=== PATIENT | female | born 1995 | race Hispanic/Latino ===

== ENCOUNTER 2018-05-28 20:29 | Emergency (ER) | payer SELFPAY ==
[2018-05-28 21:46] LABS: Absolute Lymphocytes (CBC) 2.3 K/uL (0.7-4.9); Absolute Monocytes 0.6 K/uL (0.1-1.3); Eosinophils % 3.6 % (0-4.4); Hematocrit 38.3 % (36.0-45.0); Lymphocytes % 45.2 % (15.3-44.8); MPV 7.8 fL (7.6-11.3); Monocytes % 11.9 % (3.3-12.3); RBC Red Blood Cell Count 4.01 M/uL (3.86-4.86)
[2018-05-28 21:58] LABS: Potassium 3.6 mmol/L (3.5-5.1)
[2018-05-28 22:20] LABS: Blood Morphology Comment NOT SEEN (NOT SEEN); Platelet Estimate ADEQ
--- NOTE | 2018-05-28 22:25 | RAD REPORT ---
EXAM DESCRIPTION: RAD - Chest Single View - 05/28/2018 9:44 pm CLINICAL HISTORY: CHEST PAIN Chest pain. COMPARISON: No comparisons FINDINGS: Portable technique limits examination quality. The lungs are grossly clear. The heart is normal in size. No displaced fractures. IMPRESSION: No acute intrathoracic process suspected.
--- NOTE | 2018-05-28 23:34 | ER ---
Nurse's Notes [facility] Name: Sis Walker Age: 22 yrs Sex: Female : 1995 Arrival Date: 05/28/2018 Time: 20:30 Bed 20 Private MD: Diagnosis: Chest pain, unspecified Presentation: 05/28 20:45 Presenting complaint: Patient states: Chest pain on and off for about 6 months, tonight lp1 began to have numbness in feet; Seen at clinic and given referral to direct support staff, keke on Tuesday; Complaint of chest pain to right side of chest, dizziness, shortness of breath. Transition of care: patient was not received from another setting of care. Onset of symptoms was May 28, 2018. Risk Assessment: Do you want to hurt yourself or someone else? Patient reports no desire to harm self or others. Initial Sepsis Screen: Does the patient meet any 2 criteria? No. Patient's initial sepsis screen is negative. Does the patient have a suspected source of infection? No. Patient's initial sepsis screen is negative. Care prior to arrival: None. 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 - Social history:: Smoking status: Patient/guardian denies using tobacco. - Ebola Screening: : No symptoms or risks identified at this time. - Family history:: not pertinent. - Hospitalizations: : No recent hospitalization is reported. Screenin:49 Abuse screen: Denies threats or abuse. Denies injuries from another. Nutritional lp1 screening: No deficits noted. Tuberculosis screening: No symptoms or risk factors identified. Fall Risk None identified. Assessment: 20:49 General: Appears in no apparent distress. Behavior is calm, cooperative. Pain: ed1 Complains of pain in right side of chest Pain does not radiate. Pain currently is 8 out of 10 on a pain scale. Quality of pain is described as sharp, Pain began 1 hour ago. Is continuous. Neuro: Level of Consciousness is awake, alert, obeys commands, Oriented to person, place, time, situation, Reports dizziness. Cardiovascular: Reports chest pain, lightheadedness, shortness of breath, Heart tones S1 S2 present Capillary refill < 3 seconds in bilateral fingers Patient's skin is warm and dry. Rhythm is regular. Respiratory: Reports shortness of breath at rest Airway is patent Respiratory effort is even, unlabored, Respiratory pattern is regular, symmetrical, Breath sounds are clear bilaterally. GI: No signs and/or symptoms were reported involving the gastrointestinal system. : No signs and/or symptoms were reported regarding the genitourinary system. EENT: No signs and/or symptoms were reported regarding the EENT system. Derm: Skin is pink, warm \T\ dry. Musculoskeletal: Circulation, motion, and sensation intact. Range of motion: intact in all extremities. 21:59 Reassessment: Patient appears in no apparent distress at this time. No changes from ed1 previously documented assessment. Patient and/or family updated on plan of care and expected duration. Pain level reassessed. Patient is alert, oriented x 3, equal unlabored respirations, skin warm/dry/pink. Patient states symptoms have not improved. 23:07 Reassessment: Patient appears in no apparent distress at this time. Patient and/or ed1 family updated on plan of care and expected duration. Pain level reassessed. Patient is alert, oriented x 3, equal unlabored respirations, skin warm/dry/pink. Patient states feeling better. Patient states symptoms have improved. Vital Signs: 20:47 BP 141 / 87; Pulse 74; Resp 16; Temp 98.8(O); Pulse Ox 99% on R/A; Weight 56.7 kg; lp1 Height 4 ft. 11 in. (149.86 cm); Pain 8/10; 21:59 BP 111 / 69; Pulse 74; Resp 16; Pulse Ox 98% on R/A; Pain 8/10; ed1 23:10 BP 100 / 65; Pulse 69; Resp 15; Pulse Ox 100% on R/A; Pain 4/10; ed1 20:47 Body Mass Index 25.25 (56.70 kg, 149.86 cm) lp1 ED Course: 20:30 Patient arrived in ED. do 20:47 Triage completed. lp1 20:48 Arm band placed on. lp1 20:49 Patient has correct armband on for positive identification. Placed in gown. Bed in low ed1 position. Call light in reach. Side rails up X 1. Adult w/ patient. environmental monitoring technician on. Pulse ox on. NIBP on. Warm blanket given. 20:49 Patient maintains SpO2 saturation greater than 95% on room air. ed1 20:51 Josef Alves MD is Attending Physician. rn 21:40 Inserted saline lock: 20 gauge in right antecubital area, using aseptic technique. mt Blood collected. 21:44 XRAY Chest (1 view) In Process Unspecified. EDMS 21:57 Petra Wagner, RN is Primary Nurse. ed1 05/29 00:04 No provider procedures requiring assistance completed. IV discontinued, intact, ed1 bleeding controlled, No redness/swelling at site. Pressure dressing applied. Administered Medications: No medications were administered Outcome: 05/28 23:34 Discharge ordered by . rn 05/29 00:04 Discharged to home ambulatory, with significant other. ed1 Condition: good Discharge instructions given to patient, Instructed on discharge instructions, follow up and referral plans. Demonstrated understanding of instructions, follow-up care. 00:05 Patient left the ED. ed1 Signatures: Dispatcher [employer] EDMS Josef Alves MD MD rn Riggs, Erika, RN RN ed1 Padmaja Soto RN RN lp1 Emily Chau [place] mt Corrections: (The following items were deleted from the chart) 05/28 23:08 23:07 Reassessment: Patient appears in no apparent distress at this time. No changes ed1 from previously documented assessment. Patient and/or family updated on plan of care and expected duration. Pain level reassessed. Patient is alert, oriented x 3, equal unlabored respirations, skin warm/dry/pink. ed1
--- NOTE | 2018-05-28 23:34 | EDPHYS ---
Physician Documentation [facility] Name: Sis Walker Age: 22 yrs Sex: Female : 1995 Arrival Date: 05/28/2018 Time: 20:30 Bed 20 Private MD: ED Physician Josef Alves HPI: 05/28 22:55 This 22 yrs old Female presents to ER via Ambulatory with complaints of Chest rn Pain. 22:55 The patient or guardian reports chest pain that is located primarily in the anterior rn chest wall, left. The pain does not radiate. Associated signs and symptoms: Pertinent negatives: abdominal pain, cough, diaphoresis, dizziness, lower extremity pain, lower extremity swelling, lightheadedness, near syncope, palpitations, shortness of breath, syncope, vomiting. The chest pain is described as sharp. Duration: The patient or guardian reports multiple episodes, that are intermittent. Modifying factors: The symptoms are alleviated by nothing. the symptoms are aggravated by laying down. Severity of pain: At its worst the pain was mild in the emergency department the pain has improved. The patient has experienced similar episodes in the past. Reports began 6 months ago with intermittent chest pain, was right sided, now left sided, no sob, no hx or risk factors for DVT, no trauma, no fever/cough/weight loss/hemoptysis. Seen at clinic recently, has appt with cardiology this upcoming week. No famhx of cardiac problems at her age. . 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 - Social history:: Smoking status: Patient/guardian denies using tobacco. - Ebola Screening: : No symptoms or risks identified at this time. - Family history:: not pertinent. - Hospitalizations: : No recent hospitalization is reported. ROS: 22:55 Constitutional: Negative for fever, chills, and weight loss, Eyes: Negative for injury, rn pain, redness, and discharge, Neck: Negative for injury, pain, and swelling, Cardiovascular: Negative for palpitations, and edema, Respiratory: Negative for shortness of breath, cough, wheezing Abdomen/GI: Negative for abdominal pain, nausea, vomiting, diarrhea, and constipation, Back: Negative for injury and pain, MS/Extremity: Negative for injury and deformity, Skin: Negative for injury, rash, and discoloration, Neuro: Negative for headache, weakness, numbness, and seizure. Exam: 22:55 Constitutional: This is a well developed, well nourished patient who is awake, alert, rn and in no acute distress. Head/Face: Normocephalic, atraumatic. Eyes: Pupils equal round and reactive to light, extra-ocular motions intact. Lids and lashes normal. Conjunctiva and sclera are non-icteric and not injected. Cornea within normal limits. Periorbital areas with no swelling, redness, or edema. Cardiovascular: Regular rate and rhythm. No pulse deficits. Respiratory: Lungs have equal breath sounds bilaterally, clear to auscultation. No increased work of breathing, no retractions or nasal flaring. Abdomen/GI: soft, non-tender Skin: Warm, dry MS/ Extremity: Pulses equal, no cyanosis. Neurovascular intact. Full, normal range of motion. Equal circumference. Neuro: Awake and alert, GCS 15, oriented to person, place, time, and situation. Cranial nerves II-XII grossly intact. Motor strength 5/5 in all extremities. Sensory grossly intact Vital Signs: 20:47 BP 141 / 87; Pulse 74; Resp 16; Temp 98.8(O); Pulse Ox 99% on R/A; Weight 56.7 kg; lp1 Height 4 ft. 11 in. (149.86 cm); Pain 8/10; 21:59 BP 111 / 69; Pulse 74; Resp 16; Pulse Ox 98% on R/A; Pain 8/10; ed1 23:10 BP 100 / 65; Pulse 69; Resp 15; Pulse Ox 100% on R/A; Pain 4/10; ed1 20:47 Body Mass Index 25.25 (56.70 kg, 149.86 cm) lp1 MDM: 20:51 Patient medically screened. rn 23:32 Differential diagnosis: abnormal EKG, acute pericarditis, anxiety, coronary artery rn disease chest wall pain, costochondritis, gastroesophageal reflux disease (GERD), pericarditis, pleurisy, pneumothorax, pulmonary embolus. Data reviewed: vital signs, nurses notes, lab test result(s), EKG, radiologic studies, plain films, and as a result, I will discharge patient. Counseling: I had a detailed discussion with the patient and/or guardian regarding: the historical points, exam findings, and any diagnostic results supporting the discharge/admit diagnosis, lab results, radiology results, the need for outpatient follow up, to return to the emergency department if symptoms worsen or persist or if there are any questions or concerns that arise at home. Special discussion: Based on the patient's history, exam, and Dx evaluation, there is no indication for emergent intervention or inpatient Tx. It is understood by the patient/guardian that if the Sx's persist or worsen they need to return immediately for re-evaluation. I discussed with the patient/guardian in detail that at this point there is no indication for admission to the hospital. It is understood, however, that if the symptoms persist or worsen the patient needs to return immediately for re-evaluation. Based on the history and exam findings, there is no indication for further emergent testing or inpatient evaluation. I discussed with the patient/guardian the need to see the sand operator for further evaluation of the symptoms. ED course: Pt with non-specific twave inversions inferior/lateral, no signs of acute ischemia or pericarditis, neg d-dimer, neg trop, will dc home with f/u with cardiology for holter and ECHO. . 05/28 21:31 Order name: CBC with Diff; Complete Time: 22: rn 05/28 21:31 Order name: Basic Metabolic Panel; Complete Time: 22: rn 05/28 21:31 Order name: D-Dimer; Complete Time: 22: rn 05/28 21:31 Order name: Urine Microscopic Only rn 05/28 21:47 Order name: Manual Differential; Complete Time: 22:26 EDMS 05/28 23:13 Order name: Urine Dipstick--Ancillary (enter results) 05/28 21:31 Order name: IV Start; Complete Time: 21:40 rn 05/28 21:31 Order name: EKG; Complete Time: 21:31 rn 05/28 21:31 Order name: EKG - Nurse/Tech; Complete Time: 21:32 rn 05/28 21:31 Order name: XRAY Chest (1 view); Complete Time: 22:26 rn 05/28 21:31 Order name: Urine Test (obtain specimen); Complete Time: 23:06 rn 05/28 21:31 Order name: Urine Dipstick-Ancillary (obtain specimen); Complete Time: 23:06 rn 05/28 23:13 Order name: Urine --Ancillary (enter results) 05/28 23:39 Order name: Urine Culture EDMS Administered Medications: No medications were administered Disposition: 05/28/18 23:34 Discharged to Home. Impression: Chest pain, unspecified. - Condition is Stable. - Discharge Instructions: Nonspecific Chest Pain, Pain Without a Known Cause. - Medication Reconciliation Form, Thank You Letter, Antibiotic Education, Prescription Opioid Use, Work release form form. - Follow up: Private Physician; When: As needed; Reason: Recheck today's complaints, Re-evaluation by your physician. - Problem is an ongoing problem. - Symptoms have improved. Signatures: Dispatcher [employer] EDMS Josef Alves MD MD rn Riggs, Erika RN RN ed1 Padmaja Soto RN RN lp1 Corrections: (The following items were deleted from the chart) 05/29 00:05 05/28 23:34 05/28/2018 23:34 Discharged to Home. Impression: Chest pain, unspecified. ed1 Condition is Stable. Forms are Medication Reconciliation Form, Thank You Letter, Antibiotic Education, Prescription Opioid Use. Follow up: Private Physician; When: As needed; Reason: Recheck today's complaints, Re-evaluation by your physician. Problem is an ongoing problem. Symptoms have improved. rn
[2018-05-28 23:37] LABS: Urine Bacteria 20-50 /HPF (<20)
[2018-05-28 23:38] LABS: Urine Culture Reflex Order REFLEXED; Urine RBC NONE SEEN /HPF (NONE SEEN)
[2018-05-29 05:20] LABS: Urine Blood 3+ (NEG); Urine Glucose NEGATIVE (NEG); Urine Protein TRACE (NEG)
--- NOTE | 2018-05-29 05:51 | EKG ---
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
== END 2018-05-29 00:05 | disposition home or self-care (01) ==
LOC: ER 20:29
DX: R07.9 Chest pain, unspecified (principal)
CPT/HCPCS: 36415; 71045; 80048; 81003; 81015; 81025; 85025; 85379; 87086; 87088; 93005; 99285

== ENCOUNTER 2020-01-26 02:35 | Emergency (ER) | payer BC, SELFPAY ==
--- OUTSIDE RECORDS SUMMARY | 2020-01-26 02:37 | XMS REPORT | Continuity of Care Document ---
:1995 Author Organization [facility] t Address [address] [place] [address] [address] [place] [address] Care Team Providers Name Role Phone Unavailable Unavailable Unavailable Problems This patient has no known problems. Allergies, Adverse Reactions, Alerts This patient has no known allergies or adverse reactions. Medications This patient has no known medications. Procedures This patient has no known procedures. Results This patient has no known results.
[2020-01-26] MEDS ORDERED: KETOROLAC 30 MG/ML INJ ONE (03:14)
--- NOTE | 2020-01-26 04:26 | ER ---
Nurse's Notes [facility] Name: Sis Walker Age: 24 yrs Sex: Female : 1995 Arrival Date: 01/26/2020 Time: 02:39 Bed 5 Private MD: Diagnosis: Strain of muscle and tendon of front wall of thorax Presentation: 01/25 02:44 Chief complaint: Patient states: right sided chest "cramping" woke patient up from 5 sleep. She tried omeprazole, with no relief. Pt rates pain at 4/10 no other complaints. Coronavirus screen: Client denies travel out of the [place] in the last 14 days. At this time, the client does not indicate any symptoms associated with coronavirus-19. Ebola Screen: Patient negative for fever greater than or equal to 101.5 degrees Fahrenheit, and additional compatible Ebola Virus Disease symptoms Patient denies exposure to infectious person. Patient denies travel to an Ebola-affected area in the 21 days before illness onset. No symptoms or risks identified at this time. Initial Sepsis Screen: Does the patient meet any 2 criteria? No. Patient's initial sepsis screen is negative. Does the patient have a suspected source of infection? No. Patient's initial sepsis screen is negative. Risk Assessment: Do you want to hurt yourself or someone else? Patient reports no desire to harm self or others. Onset of symptoms was January 26, 2020. 02:44 Method Of Arrival: Ambulatory 5 02:44 Acuity: YAHIR 4 dm5 Triage Assessment: 02:47 General: Appears in no apparent distress. Behavior is calm, cooperative. Pain: dm5 Complains of pain in right lateral anterior chest Pain currently is 4 out of 10 on a pain scale. Neuro: Level of Consciousness is awake, alert, obeys commands, Oriented to person, place, time, situation. Cardiovascular: Chest pain is located in right chest wall began 30 minutes prior to arrival. Respiratory: Airway is patent Respiratory effort is even, unlabored, relaxed, Respiratory pattern is regular, symmetrical. Derm: Skin is pink, warm \\T\\ dry. Historical: - Allergies: 02:47 No Known Allergies; dm5 - Home Meds: 02:47 None [Active]; dm5 - PMHx: 02:47 None; dm5 - PSHx: 02:47 None; dm5 Screenin:45 Abuse screen: Denies threats or abuse. Nutritional screening: No deficits noted. dm5 Tuberculosis screening: No symptoms or risk factors identified. Fall Risk None identified. Assessment: 02:45 General: Appears in no apparent distress. comfortable, Behavior is calm, cooperative, jb4 appropriate for age. Pain: Complains of pain in right breast Pain does not radiate. Pain currently is 4 out of 10 on a pain scale. Quality of pain is described as pressure, Pain began 1 hour ago. Neuro: Level of Consciousness is awake, alert, obeys commands. Cardiovascular: Patient's skin is warm and dry. Respiratory: Airway is patent Respiratory effort is even, unlabored, Respiratory pattern is regular, symmetrical. GI: No signs and/or symptoms were reported involving the gastrointestinal system. : No signs and/or symptoms were reported regarding the genitourinary system. EENT: No signs and/or symptoms were reported regarding the EENT system. Derm: Skin is intact, Skin is pink, warm \\T\\ dry. Musculoskeletal: Circulation, motion, and sensation intact. Range of motion: intact in all extremities. 04:20 Reassessment: Patient appears in no apparent distress at this time. Patient and/or dm5 family updated on plan of care and expected duration. Pain level reassessed. Patient is alert, oriented x 3, equal unlabored respirations, skin warm/dry/pink. Vital Signs: 02:44 Temp 97.3(TE); Weight 61.23 kg; Height 5 ft. 0 in. (152.40 cm); Pain 4/10; dm5 02:57 BP 124 / 87; Pulse 86; Resp 16; Temp 98.0(TE); Pulse Ox 98% on R/A; jb4 04:15 BP 100 / 62; Pulse 85; Resp 16; Pulse Ox 99% on R/A; Pain 0/10; dm5 02:44 Body Mass Index 26.37 (61.23 kg, 152.40 cm) dm5 ED Course: 02:39 Patient arrived in ED. am2 02:43 Jorge Pruitt, LEROY is Primary Nurse. jb4 02:44 Jt Reece MD is Attending Physician. tw4 02:45 Patient has correct armband on for positive identification. Bed in low position. Call dm5 light in reach. Side rails up X 1. Pulse ox on. NIBP on. 02:45 Patient maintains SpO2 saturation greater than 95% on room air. dm5 02:47 Triage completed. dm5 02:47 Arm band placed on right wrist. dm5 03:12 CXR XRAY In Process Unspecified. EDMS 04:40 No provider procedures requiring assistance completed. Patient did not have IV access dm5 during this emergency room visit. Administered Medications: 03:06 Drug: TORadol 60 mg Route: IM; Site: right gluteus; jb4 03:30 Follow up: Response: No adverse reaction; Pain is decreased dm5 Outcome: 04:26 Discharge ordered by . tw4 04:40 Discharged to home ambulatory. dm5 04:40 Condition: stable 04:40 Discharge instructions given to patient, Instructed on discharge instructions, follow up and referral plans. medication usage, Demonstrated understanding of instructions, follow-up care, medications, Prescriptions given X 1. 04:41 Patient left the ED. dm5 Signatures: Dispatcher [employer] EDMA Cathleen Callejas, RN RN dm5 Jorge Pruitt, LEROY RN jb4 Maia Richard Terrence, MD MD tw4
--- NOTE | 2020-01-26 04:26 | EDPHYS ---
Physician Documentation [facility] Name: Sis Walker Age: 24 yrs Sex: Female : 1995 Arrival Date: 01/26/2020 Time: 02:39 Bed 5 Private MD: ED Physician Jt Reece HPI: 01/25 02:49 This 24 yrs old Female presents to ER via Ambulatory with complaints of Chest tw4 Pressure. 02:49 The patient or guardian reports chest pain that is located primarily in the anterior tw4 chest wall, right. The pain does not radiate. Associated signs and symptoms: The patient has no apparent associated signs or symptoms. The chest pain is described as sharp. Duration: The patient or guardian reports a single episode, that is still ongoing. Severity of pain: At its worst the pain was moderate in the emergency department the pain is unchanged. 02:52 Modifying factors: The symptoms are alleviated by nothing. the symptoms are aggravated tw4 by nothing. Historical: - Allergies: 02:47 No Known Allergies; dm5 - Home Meds: 02:47 None [Active]; dm5 - PMHx: 02:47 None; dm5 - PSHx: 02:47 None; dm5 ROS: 02:52 Constitutional: Negative for fever, chills, and weight loss, Eyes: Negative for injury, tw4 pain, redness, and discharge, Respiratory: Negative for shortness of breath, cough, wheezing, and pleuritic chest pain, Abdomen/GI: Negative for abdominal pain, nausea, vomiting, diarrhea, and constipation, Back: Negative for injury and pain, MS/Extremity: Negative for injury and deformity, Skin: Negative for injury, rash, and discoloration, Neuro: Negative for headache, weakness, numbness, tingling, and seizure. 02:52 Cardiovascular: Positive for chest pain, Negative for edema, orthopnea, palpitations, paroxysmal nocturnal dyspnea. Exam: 02:52 Constitutional: This is a well developed, well nourished patient who is awake, alert, tw4 and in no acute distress. Head/Face: Normocephalic, atraumatic. Chest/axilla: Normal chest wall appearance and motion. Nontender with no deformity. No lesions are appreciated. Cardiovascular: Regular rate and rhythm with a normal S1 and S2. No gallops, murmurs, or rubs. Normal PMI, no JVD. No pulse deficits. Respiratory: Lungs have equal breath sounds bilaterally, clear to auscultation and percussion. No rales, rhonchi or wheezes noted. No increased work of breathing, no retractions or nasal flaring. Abdomen/GI: Soft, non-tender, with normal bowel sounds. No distension or tympany. No guarding or rebound. No evidence of tenderness throughout. Back: No spinal tenderness. No costovertebral tenderness. Full range of motion. Skin: Warm, dry with normal turgor. Normal color with no rashes, no lesions, and no evidence of cellulitis. MS/ Extremity: Pulses equal, no cyanosis. Neurovascular intact. Full, normal range of motion. Neuro: Awake and alert, GCS 15, oriented to person, place, time, and situation. Cranial nerves II-XII grossly intact. Motor strength 5/5 in all extremities. Sensory grossly intact. Cerebellar exam normal. Normal gait. Vital Signs: 02:44 Temp 97.3(TE); Weight 61.23 kg; Height 5 ft. 0 in. (152.40 cm); Pain 4/10; dm5 02:57 BP 124 / 87; Pulse 86; Resp 16; Temp 98.0(TE); Pulse Ox 98% on R/A; jb4 04:15 BP 100 / 62; Pulse 85; Resp 16; Pulse Ox 99% on R/A; Pain 0/10; dm5 02:44 Body Mass Index 26.37 (61.23 kg, 152.40 cm) dm5 MDM: 02:44 Patient medically screened. tw4 02:52 Data reviewed: vital signs, nurses notes. tw4 04:17 Differential diagnosis: chest wall pain, pulmonary embolus, thoracic aortic disection. tw4 HEART Score: History: Slightly Suspicious (0), ECG: Normal (0), Age: < or = 45 years (0), Risk Factors: No Risk Factors Known (0), Troponin: < or = 1 x Normal Limit (0), Total Score = 0. Data interpreted: Pulse oximetry: Interpretation:. Counseling: I had a detailed discussion with the patient and/or guardian regarding: the historical points, exam findings, and any diagnostic results supporting the discharge/admit diagnosis, radiology results. Medication response: Toradol markedly relieved the patient's pain. Special discussion: I discussed with the patient/guardian in detail that at this point there is no indication for admission to the hospital. It is understood, however, that if the symptoms persist or worsen the patient needs to return immediately for re-evaluation. 12 02:46 Order name: CXR XRAY tw4 01/25 02:46 Order name: EKG; Complete Time: :46 tw4 EC:17 Rate is 76 beats/min. Rhythm is regular. QRS [place] is Normal. RI interval is normal. QRS tw4 interval is normal. QT interval is prolonged at 412 msec. No Q waves. T waves are Normal. No ST changes noted. Clinical impression: NSR w/ Non-specific ST/T Changes. Interpreted by me. Reviewed by me. Administered Medications: 03:06 Drug: TORadol 60 mg Route: IM; Site: right gluteus; jb4 03:30 Follow up: Response: No adverse reaction; Pain is decreased dm5 Disposition: 01/26/20 04:26 Discharged to Home. Impression: Strain of muscle and tendon of front wall of thorax. - Condition is Stable. - Discharge Instructions: Chest Wall Pain, Thoracic Strain. - Prescriptions for Ibuprofen 800 mg Oral Tablet - take 1 tablet by ORAL route every 8 hours As needed take with food; 30 tablet. - Work release form, Medication Reconciliation Form, Thank You Letter, Antibiotic Education, Prescription Opioid Use form. - Follow up: Private Physician; When: Upon discharge from the Emergency Department; Reason: Recheck today's complaints, Continuance of care, Re-evaluation by your physician. - Problem is new. - Symptoms have improved. Signatures: Dispatcher [employer] EDCathleen Monahan RN RN dm5 Jorge Pruitt RN RN jb4 Jt Reece MD MD tw4 Corrections: (The following items were deleted from the chart) 04:41 04:26 01/26/2020 04:26 Discharged to Home. Impression: Strain of muscle and tendon of dm5 front wall of thorax. Condition is Stable. Forms are Medication Reconciliation Form, Thank You Letter, Antibiotic Education, Prescription Opioid Use. Follow up: Private Physician; When: Upon discharge from the Emergency Department; Reason: Recheck today's complaints, Continuance of care, Re-evaluation by your physician. Problem is new. Symptoms have improved. tw4
--- NOTE | 2020-01-26 09:32 | RAD REPORT ---
EXAM DESCRIPTION: [place] Single View01/26/2020 3:13 am CLINICAL HISTORY: Chest pain COMPARISON: 2019 FINDINGS: The lungs appear clear of acute infiltrate. The heart is normal size IMPRESSION: No acute abnormalities displayed
[2020-01-30 12:33] VITALS: TEMP 98
[2020-01-30 12:35] VITALS: BP 100/62; O2SAT 99
== END 2020-01-26 04:41 | disposition home or self-care (01) ==
LOC: ER 02:35
DX: S29.011A Strain of muscle and tendon of front wall of thorax, initial encounter (principal)
CPT/HCPCS: 71045; 93005; 96372; 99284

== ENCOUNTER 2022-09-17 05:40 | Emergency (ER) | payer BC ==
--- OUTSIDE RECORDS SUMMARY | 2022-09-17 05:49 | XMS REPORT | Continuity of Care Document ---
:[address] [facility] [place], [place] Address [address] [place] [address] [address] [place] [address] Care Team Providers Name Role Phone Adrien Saunders [facility], [facility] Primary Care P hysician Salima Aiken Attending Clinician Unavailable Luma Peguero Attending Clinician Unavailable ALFREDO HALEY Attending Clinician Unavailable ALEIDA APODACA Attending Clinician Unavailable Aleida Apodaca MD Attending Clinician 2, Adc Lab Attending Clinician Unavailable RAQUEL SOTO Attending Clinician Unavailable BUD RIVAS Attending Clinician Unavailable Bud Ruvalcaba Attending Clinician Unknown, Attending Attending Clinician Unavailable Eloy Payne Attending Clinician FIDELINA FRIEND Attending Clinician Unavailable Lab, Ang - Db Attending Clinician Unavailable Alfredo Haley PA-C Attending Clinician Doctor Unassigned, Odell Attending Clinician Unavailable ELOY CULVER Attending Clinician Unavailable ZANDRA ERWIN Attending Clinician Unavailable KAILYN MCNEIL Attending Clinician Unavailable UDAY Attending Clinician Unavailable Thien Deluna Attending Clinician Only, Ang Db Test Attending Clinician Unavailable Ernie Payne Attending Clinician ERNIE CASIANO Attending Clinician Unavailable NAOMI CASAS Attending Clinician Unavailable Naomi Casas MD Attending Clinician Only, Adc Ed Test Attending Clinician Unavailable JV STUBBS Attending Clinician Unavailable Jv Quintanilla Attending Clinician FIDEL GEE Attending Clinician Unavailable UDAY Admitting Clinician Unavailable NAOMI CASAS Admitting Clinician Unavailable Payers Payer Name Policy Type Policy Number Effective Date Expiration Date S aminata [facility] [id number] 2020 EMPLOYEE PLAN 00:00:00 [place] [id number] 2020 [facility] (PPO) 00:00:00 Blue Cross Blue 6 [id number] 2020 [facility] 00:00:[address] [place] [address] Problems Condition Condition Condition Status Onset Resolution Last Treating Co mments Source Name Details Category Date Date Treatment Clinician Date Obesity Obesity Disease Active Univers (BMI (BMI 7-21 ity of 30-39.9) 30-39.9) 00:00: [place] [address] Medical Branch Encounter Encounter Disease Active 2021-02 Uni vers to to 1- ity of establish establish 00:00: [place] [address] Medical Branch Irregular Irregular Disease Active 2021-02 Uni vers periods periods 1-28 ity of 00:00: [place] [address] Medical Branch Migraine Migraine Disease Active 2021-02 Unive rs with with 1-28 ity of status status 00:00: [place] migrainosu migrainosu 00 Me dical s, not s, not Branch intractabl intractabl e, e, unspecifie unspecifie d migraine d migraine type type No known No known Disease Unive rs active active ity of problems problems [facility] [place] [facility] Migraine Migraine Problem Commo n headache [facility] Allergies, Adverse Reactions, Alerts Allergy Allergy Status Severity Reaction(s) Onset Inactive Treating Comm ents Source Name Type Date Date Clinician NO KNOWN Drug Active Univers ALLERGIE Class ity of S [facility] [place] [facility] Social History Social Habit Start Date Stop Date Quantity Comments Source ASSERTION 2022-07-14 University 00:00:00 [facility] [place] [facility] Gender identity Universit y of [facility] [place] [facility] Sexual orientation Univer sity [facility] History of Tobacco Common Spirit - Use [facility] Sex Assigned At Common Sp nini - [facility] Alcohol intake 2022-09-03 2022-09-03 Ex-drinker [facility] 00:00:00 00:00:00 (finding) [facility] Exposure to 2022-07-04 2022-07-14 Not sure [facility] SARS-CoV-2 (event) 00:00:00 19:57:00 [facility] [place] [facility] Alcohol Comment 2022-02-02 2022-02-02 occasionally Univers ity of 00:00:00 00:00:00 [facility] [place] [facility] History of Social 2022-01-11 2022-01-11 Univers ity of function 00:00:00 00:00:00 [facility] [place] [facility] Tobacco use and 2022-01-11 2022-01-11 Smokeless tobacco Un iversity of exposure 00:00:00 00:00:00 non-user [facility] [place] [facility] Smoking Status Start Date Stop Date Source Never smoked tobacco [facility] Medications Ordered Filled Start Stop Current Ordering Indication Dosage Frequency Signature Comments Components Source Medication Medication Date Date Medication? Clinician (SIG) Name Name methylPREDN Yes [id number] follow Univers ISolone 07-14 package ity of (MEDROL, 00:00: directions [place] NATACAH,) 4 mg 00 Medical tablets Branch methylPREDN 2022-0 Yes [id number] follow Univers ISolone 07-14 package ity of (MEDROL, 00:00: directions [place] NATACHA,) 4 mg 00 Medical tablets Branch methylPREDN 2022-0 Yes [id number] follow Univers ISolone - package ity of (MEDROL, 00:00: directions [place] NATACHA,) 4 mg 00 Medical tablets Branch methylPREDN 2022-0 2022- No [id number] follow Univers ISolone 07-14 package ity of (MEDROL, 00:00: 00:00 [place] NATACHA,) 4 mg 00 :00 Medical tablets Branch dexbromphen 2023-0 Yes [id number] 5mL Take 5 mL Univers iramine-phe 4-07 by mouth ity of nylep-DM 00:00: in the [place] (BRANTUSSIN 00 morning Medic al DM) and 5 mL Branch 2-7.5-15 at noon mg/5 mL and 5 mL Liqd in the evening. dexbromphen 2022-0 Yes [id number] 5mL Take 5 mL Univers iramine-phe 4-07 by mouth ity of nylep-DM 00:00: in the [place] (BRANTUSSIN 00 morning Medic al DM) and 5 mL Branch 2-7.5-15 at noon mg/5 mL and 5 mL Liqd in the evening. dexbromphen 2022-0 Yes [id number] 5mL Take 5 mL Univers iramine-phe 4-07 by mouth ity of nylep-DM 00:00: in the [place] (BRANTUSSIN 00 morning Medic al DM) and 5 mL Branch 2-7.5-15 at noon mg/5 mL and 5 mL Liqd in the evening. dexbromphen 2022-0 Yes [id number] 5mL Take 5 mL Univers iramine-phe 4-07 by mouth ity of nylep-DM 00:00: in the [place] (BRANTUSSIN 00 morning Medic al DM) and 5 mL Branch 2-7.5-15 at noon mg/5 mL and 5 mL Liqd in the evening. dexbromphen 2022-0 Yes [id number] 5mL Take 5 mL Univers iramine-phe 4-07 by mouth ity of nylep-DM 00:00: in the [place] (BRANTUSSIN 00 morning Medic al DM) and 5 mL Branch 2-7.5-15 at noon mg/5 mL and 5 mL Liqd in the evening. dexbromphen 2022-0 Yes [id number] 5mL Take 5 mL Univers iramine-phe 4-07 by mouth ity of nylep-DM 00:00: in the [place] (BRANTUSSIN 00 morning Medic al DM) and 5 mL Branch 2-7.5-15 at noon mg/5 mL and 5 mL Liqd in the evening. dexbromphen 2022- No [id number] 5mL Take 5 mL Univers iramine-phe 4-07 07-21 by mouth ity of nylep-DM 00:00: 00:00 in the [place] (BRANTUSSIN 00 :00 morning Medic al DM) and 5 mL Branch 2-7.5-15 at noon mg/5 mL and 5 mL Liqd in the evening. bromphenira Yes [id number] 5mL Take 5 mL Univers mine-pseudo 4-06 by mouth 3 it y of ephedrine-D 00:00: (three) [place] as M (BROMFED 00 times Medical DM) 2-30-10 daily as Bran ch mg/5 mL needed for syrup Cough. albuterol Yes [id number] 2{puff} Inhale 2 Univers 90 4-06 Puffs ity of mcg/actuati 00:00: every 6 [place] as on inhaler 00 (six) Medical hours as Branch needed for Wheezing or Shortness of Breath. bromphenira Yes [id number] 5mL Take 5 mL Univers mine-pseudo 4-06 by mouth 3 it y of ephedrine-D 00:00: (three) [place] M (BROMFED 00 times Medical DM) 2-30-10 daily as Bran ch mg/5 mL needed for syrup Cough. albuterol Yes [id number] 2{puff} Inhale 2 Univers 90 4-06 Puffs ity of mcg/actuati 00:00: every 6 [place] on inhaler 00 (six) Medical hours as Branch needed for Wheezing or Shortness of Breath. bromphenira Yes [id number] 5mL Take 5 mL Univers mine-pseudo 4-06 by mouth 3 it y of ephedrine-D 00:00: (three) [place] M (BROMFED 00 times Medical DM) 2-30-10 daily as Bran ch mg/5 mL needed for syrup Cough. albuterol Yes [id number] 2{puff} Inhale 2 Univers 90 4-06 Puffs ity of mcg/actuati 00:00: every 6 [place] on inhaler 00 (six) Medical hours as Branch needed for Wheezing or Shortness of Breath. bromphenira Yes [id number] 5mL Take 5 mL Univers mine-pseudo 4-06 by mouth 3 it y of ephedrine-D 00:00: (three) [place] M (BROMFED 00 times Medical DM) 2-30-10 daily as Bran ch mg/5 mL needed for syrup Cough. albuterol Yes [id number] 2{puff} Inhale 2 Univers 90 4-06 Puffs ity of mcg/actuati 00:00: every 6 [place] on inhaler 00 (six) Medical hours as Branch needed for Wheezing or Shortness of Breath. bromphenira 2022-0 Yes [id number] 5mL Take 5 mL Univers mine-pseudo 4-06 by mouth 3 it y of ephedrine-D 00:00: (three) [place] M (BROMFED 00 times Medical DM) 2-30-10 daily as Bran ch mg/5 mL needed for syrup Cough. albuterol Yes [id number] 2{puff} Inhale 2 Univers 90 4-06 Puffs ity of mcg/actuati 00:00: every 6 [place] on inhaler 00 (six) Medical hours as Branch needed for Wheezing or Shortness of Breath. bromphenira Yes [id number] 5mL Take 5 mL Univers mine-pseudo 4-06 by mouth 3 it y of ephedrine-D 00:00: (three) [place] (BROMFED 00 times Medical DM) 2-30-10 daily as Bran ch mg/5 mL needed for syrup Cough. albuterol Yes [id number] 2{puff} Inhale 2 Univers 90 4-06 Puffs ity of mcg/actuati 00:00: every 6 [place] on inhaler 00 (six) Medical hours as Branch needed for Wheezing or Shortness of Breath. bromphenira 2022-0 Yes [id number] 5mL Take 5 mL Univers mine-pseudo 4-06 by mouth 3 it y of ephedrine-D 00:00: (three) [place] (BROMFED 00 times Medical DM) 2-30-10 daily as Bran ch mg/5 mL needed for syrup Cough. albuterol 2022-0 Yes [id number] 2{puff} Inhale 2 Univers 90 4-06 Puffs ity of mcg/actuati 00:00: every 6 [place] on inhaler 00 (six) Medical hours as Branch needed for Wheezing or Shortness of Breath. bromphenira Yes [id number] 5mL Take 5 mL Univers mine-pseudo 4-06 by mouth 3 it y of ephedrine-D 00:00: (three) [place] M (BROMFED 00 times Medical DM) 2-30-10 daily as Bran ch mg/5 mL needed for syrup Cough. albuterol Yes [id number] 2{puff} Inhale 2 Univers 90 4-06 Puffs ity of mcg/actuati 00:00: every 6 [place] on inhaler 00 (six) Medical hours as Branch needed for Wheezing or Shortness of Breath. bromphenira 2022- No [id number] 5mL Take 5 mL Univers mine-pseudo 4-06 07-21 by mouth 3 i ty of ephedrine-D 00:00: 00:00 (three) [place] M (BROMFED 00 :00 times Medical DM) 2-30-10 daily as Bran ch mg/5 mL needed for syrup Cough. albuterol 2022- No [id number] 2{puff} Inhale 2 Univers 90 4-06 07-21 Puffs ity of mcg/actuati 00:00: 00:00 every 6 [place] on inhaler 00 :00 (six) Medical hours as Branch needed for Wheezing or Shortness of Breath. No known 2021-02 No No known Unive rs medications 1-28 medication it y of 10:13: [address] No known 2021-02 No No known Unive rs medications 1-28 medication it y of 10:13: [address] No known 2021-02 No No known Unive rs medications 1-28 medication it y of 10:13: [address] No known 2021-02 No No known Unive rs medications 1-28 medication it y of 10:13: [address] erythromyci 2021-02- No Unive rs n 5 mg/gram 0-07 12-20 ity of (0.5 %) 00:00: 00:00 [place] ophthalmic 00 :00 Medical ointment Branch erythromyci 2021-02- No Unive rs n 5 mg/gram 0-07 12-20 ity of (0.5 %) 00:00: 00:00 [place] [facility] 00 :00 Medical ointment Branch UBRELVY 100 2021-02 Yes TAKE ONE Un royal mg Tab 0-05 TABLET BY ity of 00:00: MOUTH [place] 00 NEEDED, Medical MAY TAKE Branch SECOND DOSE AT LEAST 2 HOURS AFTER FIRST DOSE NEEDED UBRELVY 100 2021-02 Yes TAKE ONE Un royal mg Tab 0-05 TABLET BY ity of 00:00: MOUTH 00 NEEDED, Medical MAY TAKE Branch SECOND DOSE AT LEAST 2 HOURS AFTER FIRST DOSE NEEDED UBRELVY 100 2021-02 Yes TAKE ONE Un royal mg Tab 0-05 TABLET BY ity of 00:00: MOUTH NEEDED, Medical MAY TAKE Branch SECOND DOSE AT LEAST 2 HOURS AFTER FIRST DOSE NEEDED UBRELVY 100 2021-02 Yes TAKE ONE Un royal mg Tab 0-05 TABLET BY ity of 00:00: MOUTH NEEDED, Medical MAY TAKE Branch SECOND DOSE AT LEAST 2 HOURS AFTER FIRST DOSE NEEDED UBRELVY 100 2021-02 Yes TAKE ONE Un royal mg Tab 0-05 TABLET BY ity of 00:00: MOUTH NEEDED, Medical MAY TAKE Branch SECOND DOSE AT LEAST 2 HOURS AFTER FIRST DOSE NEEDED UBRELVY 100 2021-02 Yes TAKE ONE Un royal mg Tab 0-05 TABLET BY ity of 00:00: MOUTH NEEDED, Medical MAY TAKE Branch SECOND DOSE AT LEAST 2 HOURS AFTER FIRST DOSE NEEDED UBRELVY 100 2021-02 Yes TAKE ONE Un royal mg Tab 0-05 TABLET BY ity of 00:00: MOUTH NEEDED, Medical MAY TAKE Branch SECOND DOSE AT LEAST 2 HOURS AFTER FIRST DOSE NEEDED UBRELVY 100 2021-02 Yes TAKE ONE Un royal mg Tab 0-05 TABLET BY ity of 00:00: MOUTH NEEDED, Medical MAY TAKE Branch SECOND DOSE AT LEAST 2 HOURS AFTER FIRST DOSE NEEDED UBRELVY 100 2021-02 Yes TAKE ONE Un royal mg Tab 0-05 TABLET BY ity of 00:00: MOUTH 00 NEEDED, Medical MAY TAKE Branch SECOND DOSE AT LEAST 2 HOURS AFTER FIRST DOSE NEEDED UBRELVY 100 2021-02 Yes TAKE ONE Un royal mg Tab 0-05 TABLET BY ity of 00:00: MOUTH [place] 00 NEEDED, Medical MAY TAKE Branch SECOND DOSE AT LEAST 2 HOURS AFTER FIRST DOSE NEEDED UBRELVY 100 2021-02 Yes TAKE ONE Un royal mg Tab 0-05 TABLET BY ity of 00:00: MOUTH [place] 00 NEEDED, Medical MAY TAKE Branch SECOND DOSE AT LEAST 2 HOURS AFTER FIRST DOSE NEEDED UBRELVY 100 2021-02 Yes TAKE ONE Un royal mg Tab 0-05 TABLET BY ity of 00:00: MOUTH [place] 00 NEEDED, Medical MAY TAKE Branch SECOND DOSE AT LEAST 2 HOURS AFTER FIRST DOSE NEEDED UBRELVY 100 2021-02 Yes TAKE ONE Un royal mg Tab 0-05 TABLET BY ity of 00:00: MOUTH 00 NEEDED, Medical MAY TAKE Branch SECOND DOSE AT LEAST 2 HOURS AFTER FIRST DOSE NEEDED UBRELVY 100 2021-02 Yes TAKE ONE Un royal mg Tab 0-05 TABLET BY ity of 00:00: MOUTH [place] 00 NEEDED, Medical MAY TAKE Branch SECOND DOSE AT LEAST 2 HOURS AFTER FIRST DOSE NEEDED UBRELVY 100 2021-02 Yes TAKE ONE Un royal mg Tab 0-05 TABLET BY ity of 00:00: MOUTH [place] 00 NEEDED, Medical MAY TAKE Branch SECOND DOSE AT LEAST 2 HOURS AFTER FIRST DOSE NEEDED UBRELVY 100 2021-02 Yes TAKE ONE Un royal mg Tab 0-05 TABLET BY ity of 00:00: MOUTH [place] 00 NEEDED, Medical MAY TAKE Branch SECOND DOSE AT LEAST 2 HOURS AFTER FIRST DOSE NEEDED UBRELVY 100 2021-02 Yes TAKE ONE Un royal mg Tab 0-05 TABLET BY ity of 00:00: MOUTH [place] 00 NEEDED, Medical MAY TAKE Branch SECOND DOSE AT LEAST 2 HOURS AFTER FIRST DOSE NEEDED UBRELVY 100 2021-02 Yes TAKE ONE Un royal mg Tab 0-05 TABLET BY ity of 00:00: MOUTH [place] 00 NEEDED, Medical MAY TAKE Branch SECOND DOSE AT LEAST 2 HOURS AFTER FIRST DOSE NEEDED UBRELVY 100 2021-02 Yes TAKE ONE Un royal mg Tab 0-05 TABLET BY ity of 00:00: MOUTH [place] 00 NEEDED, Medical MAY TAKE Branch SECOND DOSE AT LEAST 2 HOURS AFTER FIRST DOSE NEEDED UBRELVY 100 2021-02- No TAKE ONE U nivers mg Tab 0-05 07-21 TABLET BY ity of 00:00: 00:00 MOUTH [place] 00 :00 NEEDED, Medical MAY TAKE Branch SECOND DOSE AT LEAST 2 HOURS AFTER FIRST DOSE NEEDED Ubrelvy 100 Ubrelvy 100 2021- No QD Ubrelvy MG MG 11-09- 100 MG 00:00: 00:00 00 :00 Ubrelvy 100 Ubrelvy 100 2021- No QD Ubrelvy MG MG 11-09- 100 MG 00:00: 00:00 00 :00 Ubrelvy 100 Ubrelvy 100 2021- No QD Ubrelvy MG MG 11-09 100 MG 00:00: 00:00 00 :00 Ubrelvy 100 Ubrelvy 100 2021- No QD Ubrelvy MG MG 11-09 100 MG 00:00: 00:00 00 :00 No known 2020-02 No Univers medications -15 ity of 15:27: [address] Ubrelvy 100 Ubrelvy 100 No Ubrelvy [place] mg tablet mg tablet 100 mg Com severo TAKE ONE TAKE ONE tablet ty TABLET BY TABLET BY TAKE ONE H ospita MOUTH MOUTH TABLET BY l NEEDED, MAY NEEDED, MAY MOUTH Clinics TAKE SECOND TAKE SECOND NEEDED, DOSE AT DOSE AT MAY TAKE LEAST 2 LEAST 2 SECOND HOURS AFTER HOURS AFTER DOSE AT FIRST DOSE FIRST DOSE LEAST 2 NEEDED NEEDED HOURS AFTER FIRST DOSE NEEDED valacyclovi valacyclovi No valacyclov [place] r 1 gram r 1 gram ir 1 gram Co mmuni tablet TAKE tablet TAKE tablet ty 1 TABLET BY 1 TABLET BY TAKE 1 Hospita MOUTH THREE MOUTH THREE TABLET BY l TIMES DAILY TIMES DAILY MOUTH Clinics FOR 7 DAYS FOR 7 DAYS THREE TIMES DAILY FOR 7 DAYS benzonatate benzonatate No benzonatat [place] 200 mg 200 mg e 200 mg Communi capsule capsule capsule ty TAKE 1 TAKE 1 TAKE 1 Hospita CAPSULE BY CAPSULE BY CAPSULE BY l MOUTH THREE MOUTH THREE MOUTH Clinics TIMES DAILY TIMES DAILY THREE NEEDED NEEDED TIMES FOR COUGH FOR COUGH DAILY NEEDED FOR COUGH erythromyci erythromyci No erythromyc [place] n 5 mg/gram n 5 mg/gram in 5 C ommuni (0.5 %) eye (0.5 %) eye mg/gram ty ointment ointment (0.5 %) Hosp janet APPLY 1 CM APPLY 1 CM eye l RIBBON INTO RIBBON INTO ointment Clinics THE LOWER THE LOWER APPLY 1 CM CONJUNCTIVA CONJUNCTIVA RIBBON L SAC(S) IN L SAC(S) IN INTO THE THE THE LOWER AFFECTED AFFECTED CONJUNCTIV EYE(S) BY EYE(S) BY AL SAC(S) OPHTHALMIC OPHTHALMIC IN THE ROUTE 3 ROUTE 3 AFFECTED TIMES PER TIMES PER EYE(S) BY DAY DAY OPHTHALMIC ROUTE 3 TIMES PER DAY gabapentin gabapentin No gabapentin [place] 300 mg 300 mg 300 mg Communi capsule capsule capsule ty TAKE 1 TAKE 1 TAKE 1 Hospita CAPSULE BY CAPSULE BY CAPSULE BY l MOUTH THREE MOUTH THREE MOUTH Clinics TIMES DAILY TIMES DAILY THREE FOR 7 DAYS FOR 7 DAYS TIMES DAILY FOR 7 DAYS ibuprofen ibuprofen No ibuprofen [place] 800 mg 800 mg 800 mg Communi tablet TAKE tablet TAKE tablet ty 1 TABLET BY 1 TABLET BY TAKE 1 Hospita MOUTH EVERY MOUTH EVERY TABLET BY l 6 HOURS 6 HOURS MOUTH Cl inics NEEDED FOR NEEDED FOR EVERY 6 PAIN FOR PAIN FOR HOURS FEVER FEVER NEEDED FOR PAIN FOR FEVER ipratropium ipratropium No ipratropiu [place] bromide 42 bromide 42 m bromide Communi mcg (0.06 mcg (0.06 42 mcg ty %) nasal %) nasal (0.06 %) Hos cory spray USE 2 spray USE 2 nasal l SPRAY(S) IN SPRAY(S) IN spray USE Clinics EACH EACH 2 SPRAY(S) NOSTRIL 3 NOSTRIL 3 IN EACH TO 4 TIMES TO 4 TIMES NOSTRIL 3 DAILY FOR 4 DAILY FOR 4 TO 4 TIMES DAYS DAYS DAILY FOR 4 DAYS Ubrelvy 100 Ubrelvy 100 No Ubrelvy [place] mg tablet mg tablet 100 mg Com severo TAKE ONE TAKE ONE tablet ty TABLET BY TABLET BY TAKE ONE H ospita MOUTH MOUTH TABLET BY l NEEDED, MAY NEEDED, MAY MOUTH Clinics TAKE SECOND TAKE SECOND NEEDED, DOSE AT DOSE AT MAY TAKE LEAST 2 LEAST 2 SECOND HOURS AFTER HOURS AFTER DOSE AT FIRST DOSE FIRST DOSE LEAST 2 NEEDED NEEDED HOURS AFTER FIRST DOSE NEEDED valacyclovi valacyclovi No valacyclov [place] r 1 gram r 1 gram ir 1 gram Co mmuni tablet TAKE tablet TAKE tablet ty 1 TABLET BY 1 TABLET BY TAKE 1 Hospita MOUTH THREE MOUTH THREE TABLET BY l TIMES DAILY TIMES DAILY MOUTH Clinics FOR 7 DAYS FOR 7 DAYS THREE TIMES DAILY FOR 7 DAYS benzonatate benzonatate No benzonatat [place] 200 mg 200 mg e 200 mg Communi capsule capsule capsule ty TAKE 1 TAKE 1 TAKE 1 Hospita CAPSULE BY CAPSULE BY CAPSULE BY l MOUTH THREE MOUTH THREE MOUTH Clinics TIMES DAILY TIMES DAILY THREE NEEDED NEEDED TIMES FOR COUGH FOR COUGH DAILY NEEDED FOR COUGH erythromyci erythromyci No erythromyc [place] n 5 mg/gram n 5 mg/gram in 5 C ommuni (0.5 %) eye (0.5 %) eye mg/gram ty ointment ointment (0.5 %) Hosp janet APPLY 1 CM APPLY 1 CM eye l RIBBON INTO RIBBON INTO ointment Clinics THE LOWER THE LOWER APPLY 1 CM CONJUNCTIVA CONJUNCTIVA RIBBON L SAC(S) IN L SAC(S) IN INTO THE THE THE LOWER AFFECTED AFFECTED CONJUNCTIV EYE(S) BY EYE(S) BY AL SAC(S) OPHTHALMIC OPHTHALMIC IN THE ROUTE 3 ROUTE 3 AFFECTED TIMES PER TIMES PER EYE(S) BY DAY DAY OPHTHALMIC ROUTE 3 TIMES PER DAY gabapentin gabapentin No gabapentin [place] 300 mg 300 mg 300 mg Communi capsule capsule capsule ty TAKE 1 TAKE 1 TAKE 1 Hospita CAPSULE BY CAPSULE BY CAPSULE BY l MOUTH THREE MOUTH THREE MOUTH Clinics TIMES DAILY TIMES DAILY THREE FOR 7 DAYS FOR 7 DAYS TIMES DAILY FOR 7 DAYS ibuprofen ibuprofen No ibuprofen [place] 800 mg 800 mg 800 mg Communi tablet TAKE tablet TAKE tablet ty 1 TABLET BY 1 TABLET BY TAKE 1 Hospita MOUTH EVERY MOUTH EVERY TABLET BY l 6 HOURS 6 HOURS MOUTH Cl inics NEEDED FOR NEEDED FOR EVERY 6 PAIN FOR PAIN FOR HOURS FEVER FEVER NEEDED FOR PAIN FOR FEVER ipratropium ipratropium No ipratropiu [place] bromide 42 bromide 42 m bromide Communi mcg (0.06 mcg (0.06 42 mcg ty %) nasal %) nasal (0.06 %) Hos cory spray USE 2 spray USE 2 nasal l SPRAY(S) IN SPRAY(S) IN spray USE Clinics EACH EACH 2 SPRAY(S) NOSTRIL 3 NOSTRIL 3 IN EACH TO 4 TIMES TO 4 TIMES NOSTRIL 3 DAILY FOR 4 DAILY FOR 4 TO 4 TIMES DAYS DAYS DAILY FOR 4 DAYS Ubrelvy 100 Ubrelvy 100 No Ubrelvy [place] mg tablet mg tablet 100 mg Com severo TAKE ONE TAKE ONE tablet ty TABLET BY TABLET BY TAKE ONE H ospita MOUTH MOUTH TABLET BY l NEEDED, MAY NEEDED, MAY MOUTH Clinics TAKE SECOND TAKE SECOND NEEDED, DOSE AT DOSE AT MAY TAKE LEAST 2 LEAST 2 SECOND HOURS AFTER HOURS AFTER DOSE AT FIRST DOSE FIRST DOSE LEAST 2 NEEDED NEEDED HOURS AFTER FIRST DOSE NEEDED valacyclovi valacyclovi No valacyclov [place] r 1 gram r 1 gram ir 1 gram Co mmuni tablet TAKE tablet TAKE tablet ty 1 TABLET BY 1 TABLET BY TAKE 1 Hospita MOUTH THREE MOUTH THREE TABLET BY l TIMES DAILY TIMES DAILY MOUTH Clinics FOR 7 DAYS FOR 7 DAYS THREE TIMES DAILY FOR 7 DAYS benzonatate benzonatate No benzonatat [place] 200 mg 200 mg e 200 mg Communi capsule capsule capsule ty TAKE 1 TAKE 1 TAKE 1 Hospita CAPSULE BY CAPSULE BY CAPSULE BY l MOUTH THREE MOUTH THREE MOUTH Clinics TIMES DAILY TIMES DAILY THREE NEEDED NEEDED TIMES FOR COUGH FOR COUGH DAILY NEEDED FOR COUGH gabapentin gabapentin No gabapentin [place] 300 mg 300 mg 300 mg Communi capsule capsule capsule ty TAKE 1 TAKE 1 TAKE 1 Hospita CAPSULE BY CAPSULE BY CAPSULE BY l MOUTH THREE MOUTH THREE MOUTH Clinics TIMES DAILY TIMES DAILY THREE FOR 7 DAYS FOR 7 DAYS TIMES DAILY FOR 7 DAYS ibuprofen ibuprofen No ibuprofen [place] 800 mg 800 mg 800 mg Communi tablet TAKE tablet TAKE tablet ty 1 TABLET BY 1 TABLET BY TAKE 1 Hospita MOUTH EVERY MOUTH EVERY TABLET BY l 6 HOURS 6 HOURS MOUTH Cl inics NEEDED FOR NEEDED FOR EVERY 6 PAIN FOR PAIN FOR HOURS FEVER FEVER NEEDED FOR PAIN FOR FEVER ipratropium ipratropium No ipratropiu [place] bromide 42 bromide 42 m bromide Communi mcg (0.06 mcg (0.06 42 mcg ty %) nasal %) nasal (0.06 %) Hos cory spray USE 2 spray USE 2 nasal l SPRAY(S) IN SPRAY(S) IN spray USE Clinics EACH EACH 2 SPRAY(S) NOSTRIL 3 NOSTRIL 3 IN EACH TO 4 TIMES TO 4 TIMES NOSTRIL 3 DAILY FOR 4 DAILY FOR 4 TO 4 TIMES DAYS DAYS DAILY FOR 4 DAYS ZyrTEC ZyrTEC No 1{table BID ZyrTEC Allergy 10 Allergy 10 t} Allergy 10 MG MG MG Omeprazole Omeprazole No Omeprazole 40 MG 40 MG 40 MG Mupirocin Mupirocin No 1{appli TID Mupirocin Calcium 2 % Calcium 2 % cation} Calcium 2 % Mupirocin Mupirocin No 1{appli TID Mupirocin Calcium 2 % Calcium 2 % cation} Calcium 2 % ZyrTEC ZyrTEC No 1{table BID ZyrTEC Allergy 10 Allergy 10 t} Allergy 10 MG MG MG Omeprazole Omeprazole No Omeprazole 40 MG 40 MG 40 MG Mupirocin Mupirocin No 1{appli TID Mupirocin Calcium 2 % Calcium 2 % cation} Calcium 2 % ZyrTEC ZyrTEC No 1{table BID ZyrTEC Allergy 10 Allergy 10 t} Allergy 10 MG MG MG Omeprazole Omeprazole No Omeprazole 40 MG 40 MG 40 MG ZyrTEC ZyrTEC No 1{table BID ZyrTEC Allergy 10 Allergy 10 t} Allergy 10 MG MG MG Omeprazole Omeprazole No Omeprazole 40 MG 40 MG 40 MG Mupirocin Mupirocin No 1{appli TID Mupirocin Calcium 2 % Calcium 2 % cation} Calcium 2 % Mupirocin Mupirocin No 1{appli TID Mupirocin Calcium 2 % Calcium 2 % cation} Calcium 2 % ZyrTEC ZyrTEC No 1{table BID ZyrTEC Allergy 10 Allergy 10 t} Allergy 10 MG MG MG Omeprazole Omeprazole No Omeprazole 40 MG 40 MG 40 MG Mupirocin Mupirocin No 1{appli TID Mupirocin Calcium 2 % Calcium 2 % cation} Calcium 2 % ZyrTEC ZyrTEC No 1{table BID ZyrTEC Allergy 10 Allergy 10 t} Allergy 10 MG MG MG Omeprazole Omeprazole No Omeprazole 40 MG 40 MG 40 MG Immunizations Ordered Immunization Filled Immunization Date Status Commen ts Source Name Name Influenza Virus 2021-11-30 Completed Universit [facility] of Vaccine [facility] 00:00:00 [place] [facility], Preserv and ABX Branc h Free 18-64 YRS Influenza Virus 2021-11-30 Completed Universit y of Vaccine Recomb Quad 00:00:00 [place] [facility] IM, Preserv and ABX Branc h Free 18-64 YRS Influenza Virus 2021-11-30 Completed Universit y of Vaccine Recomb Quad 00:00:00 [facility] IM, Preserv and ABX Branc h Free 18-64 YRS Influenza Virus 2021-11-30 Completed [facility] 00:00:00 [facility] Preserv and ABX Branc h Free 18-64 YRS Influenza Virus 2021-11-30 Completed [facility] 00:00:00 [facility] Preserv and ABX Branc h Free 18-64 YRS Influenza Virus 2021-11-30 Completed [facility] Vaccine [facility] 00:00:00 [facility], Preserv and ABX Branc h Free 18-64 YRS Influenza Virus 2021-11-30 Completed [facility] Vaccine [facility] 00:00:00 [facility] Preserv and ABX Branc h Free 18-64 YRS Influenza Virus 2021-11-30 Completed [facility] Vaccine [facility] 00:00:00 [facility], Preserv and ABX Branc h Free 18-64 YRS Influenza Virus 2021-11-30 Completed [facility]ine [facility] 00:00:00 [facility], Preserv and ABX Branc h Free 18-64 YRS Influenza Virus 2021-11-30 Completed [facility] Vaccine [facility] 00:00:00 [facility], Preserv and ABX Branc h Free 18-64 YRS Influenza Virus 2021-11-30 Completed [facility] Vaccine [facility] 00:00:00 [facility], Preserv and ABX Branc h Free 18-64 YRS Influenza Virus 2021-11-30 Completed [facility] Vaccine [facility] 00:00:00 [facility], Preserv and ABX Branc h Free 18-64 YRS Influenza Virus 2021-11-30 Completed [facility] Vaccine [facility] 00:00:00 [facility] Preserv and ABX Branc h Free 18-64 YRS Influenza Virus 2021-11-30 Completed [facility] Vaccine [facility] 00:00:00 [facility], Preserv and ABX Branc h Free 18-64 YRS Influenza Virus 2021-11-30 Completed [facility] Vaccine [facility] 00:00:00 [facility], Preserv and ABX Branc h Free 18-64 YRS Influenza Virus 2021-11-30 Completed [facility] Vaccine [facility] 00:00:00 [facility], Preserv and ABX Branc h Free 18-64 YRS Influenza Virus 2021-11-30 Completed [facility] Vaccine [facility] 00:00:00 [facility], Preserv and ABX Branc h Free 18-64 YRS Influenza Virus 2021-11-30 Completed [facility] Vaccine [facility] 00:00:00 [facility], Preserv and ABX Branc h Free 18-64 YRS Influenza Virus 2021-11-30 Completed [facility] Vaccine [facility] 00:00:00 [facility], Preserv and ABX Branc h Free 18-64 YRS Influenza Virus 2021-11-30 Completed [facility] Vaccine [facility] 00:00:00 [facility], Preserv and ABX Branc h Free 18-64 YRS Influenza Virus 2021-11-30 Completed [facility] Vaccine [facility] 00:00:00 [facility], Preserv and ABX Branc h Free 18-64 YRS Influenza Virus 2021-11-30 Completed [facility] Vaccine [facility] 00:00:00 [facility], Preserv and ABX Branc h Free 18-64 YRS Influenza Virus 2021-11-30 Completed [facility] Vaccine [facility] 00:00:00 [facility], Preserv and ABX Branc h Free 18-64 YRS Influenza Virus 2021-11-30 Completed [facility] Vaccine [facility] 00:00:00 [facility], Preserv and ABX Branc h Free 18-64 YRS Influenza Virus 2021-11-30 Completed [facility] Vaccine [facility] 00:00:00 [facility], Preserv and ABX Branc h Free 18-64 YRS Influenza Virus 2021-11-30 Completed [facility] Vaccine [facility] 00:00:00 [facility], Preserv and ABX Branc h Free 18-64 YRS SARS-COV-2 COVID-19 2021-01-14 Completed [facility] PFIZER VACCINE 00:00:00 [facility] SARS-COV-2 COVID-19 2021-01-14 Completed [facility] PFIZER VACCINE 00:00:00 [facility] SARS-COV-2 COVID-19 2021-01-14 Completed [facility] of PFIZER VACCINE 00:00:00 [facility] SARS-COV-2 COVID-19 2021-01-14 Completed [facility] PFIZER VACCINE 00:00:00 [facility] SARS-COV-2 COVID-19 2021-01-14 Completed [facility] of PFIZER VACCINE 00:00:00 [facility] SARS-COV-2 COVID-19 2021-01-14 Completed [facility] of PFIZER VACCINE 00:00:00 [facility] SARS-COV-2 COVID-19 2021-01-14 Completed [facility] of PFIZER VACCINE 00:00:00 [facility] SARS-COV-2 COVID-19 2021-01-14 Completed [facility] of PFIZER VACCINE 00:00:00 [facility] SARS-COV-2 COVID-19 2021-01-14 Completed [facility] of PFIZER VACCINE 00:00:00 [facility] SARS-COV-2 COVID-19 2021-01-14 Completed [facility] of PFIZER VACCINE 00:00:00 [facility] SARS-COV-2 COVID-19 2021-01-14 Completed [facility] of PFIZER VACCINE 00:00:00 [facility] SARS-COV-2 COVID-19 2021-01-14 Completed [facility] of PFIZER VACCINE 00:00:00 [facility] SARS-COV-2 COVID-19 2021-01-14 Completed [facility] of PFIZER VACCINE 00:00:00 [facility] SARS-COV-2 COVID-19 2021-01-14 Completed [facility] of PFIZER VACCINE 00:00:00 [facility] SARS-COV-2 COVID-19 2021-01-14 Completed [facility] of PFIZER VACCINE 00:00:00 [facility] SARS-COV-2 COVID-19 2021-01-14 Completed [facility] of PFIZER VACCINE 00:00:00 [facility] SARS-COV-2 COVID-19 2021-01-14 Completed [facility] of PFIZER VACCINE 00:00:00 [facility] SARS-COV-2 COVID-19 2021-01-14 Completed [facility] of PFIZER VACCINE 00:00:00 [facility] SARS-COV-2 COVID-19 2021-01-14 Completed [facility] of PFIZER VACCINE 00:00:00 [facility] SARS-COV-2 COVID-19 2021-01-14 Completed [facility] of PFIZER VACCINE 00:00:00 [facility] SARS-COV-2 COVID-19 2021-01-14 Completed [facility] of PFIZER VACCINE 00:00:00 [facility] SARS-COV-2 COVID-19 2021-01-14 Completed [facility] of PFIZER VACCINE 00:00:00 [facility] Influenza Virus 2020-12-10 Completed [facility] Vaccine 00:00:00 [facility] Influenza Virus 2020-12-10 Completed [facility] Vaccine 00:00:00 [facility] Influenza Virus 2020-12-10 Completed [facility] Vaccine 00:00:00 [facility] Influenza Virus 2020-12-10 Completed [facility] Vaccine 00:00:00 [facility] Influenza Virus 2020-12-10 Completed [facility] Vaccine 00:00:00 [facility] Influenza Virus 2020-12-10 Completed [facility] Vaccine 00:00:00 [facility] Influenza Virus 2020-12-10 Completed [facility] Vaccine 00:00:00 [facility] Influenza Virus 2020-12-10 Completed [facility] Vaccine 00:00:00 [facility] Influenza Virus 2020-12-10 Completed [facility] Vaccine 00:00:00 [facility] Influenza Virus 2020-12-10 Completed [facility] Vaccine 00:00:00 [facility] Influenza Virus 2020-12-10 Completed [facility] Vaccine 00:00:00 [facility] Influenza Virus 2020-12-10 Completed [facility] Vaccine 00:00:00 [facility] Influenza Virus 2020-12-10 Completed [facility] Vaccine 00:00:00 [facility] Influenza Virus 2020-12-10 Completed [facility] Vaccine 00:00:00 [facility] Influenza Virus 2020-12-10 Completed [facility] Vaccine 00:00:00 [facility] Influenza Virus 2020-12-10 Completed [facility] Vaccine 00:00:00 [facility] Influenza Virus 2020-12-10 Completed [facility] Vaccine 00:00:00 [facility] Influenza Virus 2020-12-10 Completed [facility] Vaccine 00:00:00 [facility] Influenza Virus 2020-12-10 Completed [facility] Vaccine 00:00:00 [facility] Influenza Virus 2020-12-10 Completed [facility] Vaccine 00:00:00 [facility] Influenza Virus 2020-12-10 Completed [facility] Vaccine 00:00:00 [facility] Influenza Virus 2020-12-10 Completed [facility] Vaccine 00:00:00 [facility] Influenza Virus 2020-12-10 Completed [facility] Vaccine 00:00:00 [facility] Influenza Virus 2020-12-10 Completed [facility] Vaccine 00:00:00 [facility] Influenza Virus 2020-12-10 Completed [facility] Vaccine 00:00:00 [facility] Influenza Virus 2020-12-10 Completed [facility] Vaccine 00:00:00 [facility] SARS-COV-2 COVID-19 2020-05-15 Completed [facility] of PFIZER 5-11 YRS 00:00:00 [facility] VACCINE Branch SARS-COV-2 COVID-19 2020-05-15 Completed [facility] of PFIZER 5-11 YRS 00:00:00 [facility] SARS-COV-2 COVID-19 2020-05-15 Completed [facility]ive [facility] of PFIZER 5-11 YRS 00:00:00 [facility] VACCINE Branch SARS-COV-2 COVID-19 2020-05-15 Completed [facility] of PFIZER 5-11 YRS 00:00:00 [facility] VACCINE Branch SARS-COV-2 COVID-19 2020-05-15 Completed [facility] of PFIZER 5-11 YRS 00:00:00 [facility] VACCINE Branch SARS-COV-2 COVID-19 2020-05-15 Completed [facility]ive [facility] of PFIZER 5-11 YRS 00:00:00 [facility] ical VACCINE Branch SARS-COV-2 COVID-19 2020-05-15 Completed [facility]ive rsity of PFIZER 5-11 YRS 00:00:00 [facility] ical VACCINE Branch SARS-COV-2 COVID-19 2020-05-15 Completed [facility] of PFIZER 5-11 YRS 00:00:00 [facility] VACCINE Branch SARS-COV-2 COVID-19 2020-05-15 Completed [facility] of PFIZER 5-11 YRS 00:00:00 [facility] VACCINE Branch SARS-COV-2 COVID-19 2020-05-15 Completed [facility] of PFIZER 5-11 YRS 00:00:00 [facility] SARS-COV-2 COVID-19 2020-05-15 Completed [facility] of PFIZER 5-11 YRS 00:00:00 [facility] SARS-COV-2 COVID-19 2020-05-15 Completed [facility] of PFIZER 5-11 YRS 00:00:00 [facility] SARS-COV-2 COVID-19 2020-05-15 Completed [facility] of PFIZER 5-11 YRS 00:00:00 [facility] V[facility] SARS-COV-2 COVID-19 2020-05-15 Completed [facility] of PFIZER 5-11 YRS 00:00:00 [facility] VACC[facility] SARS-COV-2 COVID-19 2020-05-15 Completed [facility] of PFIZER 5-11 YRS 00:00:00 [facility] VACC[facility] SARS-COV-2 COVID-19 2020-05-15 Completed [facility] of PFIZER 5-11 YRS 00:00:00 [facility] VACC[facility] SARS-COV-2 COVID-19 2020-05-15 Completed [facility] of PFIZER 5-11 YRS 00:00:00 [facility] VACC[facility] SARS-COV-2 COVID-19 2020-05-15 Completed [facility] of PFIZER 5-11 YRS 00:00:00 [facility] VACC[facility] SARS-COV-2 COVID-19 2020-05-15 Completed [facility] of PFIZER 5-11 YRS 00:00:00 [facility] VACC[facility] SARS-COV-2 COVID-19 2020-05-15 Completed [facility] of PFIZER 5-11 YRS 00:00:00 [facility] VACC[facility] SARS-COV-2 COVID-19 2020-05-15 Completed [facility] of PFIZER 5-11 YRS 00:00:00 [facility] VACC[facility] SARS-COV-2 COVID-19 2020-05-15 Completed [facility] of PFIZER 5-11 YRS 00:00:00 [facility] VACC[facility] SARS-COV-2 COVID-19 2020-03-17 Completed [facility] PFIZER VACCINE 00:00:00 [facility] SARS-COV-2 COVID-19 2020-03-17 Completed [facility] of PFIZER VACCINE 00:00:00 [facility] SARS-COV-2 COVID-19 2020-03-17 Completed [facility] of PFIZER VACCINE 00:00:00 [facility] SARS-COV-2 COVID-19 2020-03-17 Completed [facility] of PFIZER VACCINE 00:00:00 [facility] SARS-COV-2 COVID-19 2020-03-17 Completed [facility] of PFIZER VACCINE 00:00:00 [facility] SARS-COV-2 COVID-19 2020-03-17 Completed [facility] of PFIZER VACCINE 00:00:00 [facility] SARS-COV-2 COVID-19 2020-03-17 Completed [facility] of PFIZER VACCINE 00:00:00 [facility] SARS-COV-2 COVID-19 2020-03-17 Completed [facility] of PFIZER VACCINE 00:00:00 [facility] SARS-COV-2 COVID-19 2020-03-17 Completed [facility] of PFIZER VACCINE 00:00:00 [facility] SARS-COV-2 COVID-19 2020-03-17 Completed [facility] of PFIZER VACCINE 00:00:00 [facility] SARS-COV-2 COVID-19 2020-03-17 Completed [facility] of PFIZER VACCINE 00:00:00 [facility] SARS-COV-2 COVID-19 2020-03-17 Completed [facility] of PFIZER VACCINE 00:00:00 [facility] SARS-COV-2 COVID-19 2020-03-17 Completed [facility] of PFIZER VACCINE 00:00:00 [facility] SARS-COV-2 COVID-19 2020-03-17 Completed [facility] of PFIZER VACCINE 00:00:00 [facility] SARS-COV-2 COVID-19 2020-03-17 Completed [facility] of PFIZER VACCINE 00:00:00 [facility] SARS-COV-2 COVID-19 2020-03-17 Completed [facility] of PFIZER VACCINE 00:00:00 [facility] SARS-COV-2 COVID-19 2020-03-17 Completed [facility] of PFIZER VACCINE 00:00:00 [facility] SARS-COV-2 COVID-19 2020-03-17 Completed [facility] of PFIZER VACCINE 00:00:00 [facility] SARS-COV-2 COVID-19 2020-03-17 Completed [facility] of PFIZER VACCINE 00:00:00 [facility] SARS-COV-2 COVID-19 2020-03-17 Completed [facility] of PFIZER VACCINE 00:00:00 [facility] SARS-COV-2 COVID-19 2020-03-17 Completed [facility] of PFIZER VACCINE 00:00:00 [facility] SARS-COV-2 COVID-19 2020-03-17 Completed [facility] of PFIZER VACCINE 00:00:00 [facility] HEPATITIS A 2018-09-11 Completed [facility] 00:00:00 [facility] HPV 2018-09-11 Completed [facility] 00:00:00 [facility] TD, NOS 2018-09-11 Completed [facility] 00:00:00 [facility] HEPATITIS A 2018-09-11 Completed [facility] 00:00:00 [facility] HEPATITIS A 2018-09-11 Completed [facility] 00:00:00 [facility] HPV 2018-09-11 Completed [facility] 00:00:00 [facility] TD, NOS 2018-09-11 Completed [facility] 00:00:00 [facility] HPV 2018-09-11 Completed [facility] 00:00:00 [facility] HEPATITIS A 2018-09-11 Completed [facility] 00:00:00 [facility] HPV 2018-09-11 Completed [facility] 00:00:00 [facility] TD, NOS 2018-09-11 Completed [facility] 00:00:00 [facility] HEPATITIS A 2018-09-11 Completed [facility] 00:00:00 [facility] HPV 2018-09-11 Completed [facility] 00:00:00 [facility] TD, NOS 2018-09-11 Completed [facility] of 00:00:00 [facility] Td 2018-09-11 Completed [facility] of 00:00:00 [facility] HEPATITIS A 2018-09-11 Completed [facility] 00:00:00 [facility] HPV 2018-09-11 Completed [facility] 00:00:00 [facility] Td 2018-09-11 Completed [facility] 00:00:00 [facility] HEPATITIS A 2018-09-11 Completed [facility] 00:00:00 [facility] HPV 2018-09-11 Completed [facility] 00:00:00 [facility] Td 2018-09-11 Completed [facility] 00:00:00 [facility] HEPATITIS A 2018-09-11 Completed [facility] 00:00:00 [facility] HPV 2018-09-11 Completed [facility] 00:00:00 [facility] Td 2018-09-11 Completed [facility] 00:00:00 [facility] HEPATITIS A 2018-09-11 Completed [facility] 00:00:00 [facility] HPV 2018-09-11 Completed [facility] 00:00:00 [facility] Td 2018-09-11 Completed [facility] 00:00:00 [facility] HEPATITIS A 2018-09-11 Completed [facility] 00:00:00 [facility] HPV 2018-09-11 Completed [facility] 00:00:00 [facility] Td 2018-09-11 Completed [facility] of 00:00:00 [facility] HEPATITIS A 2018-09-11 Completed [facility] 00:00:00 [facility] HPV 2018-09-11 Completed [facility] 00:00:00 [facility] TD, NOS 2018-09-11 Completed [facility] 00:00:00 [facility] HEPATITIS A 2018-09-11 Completed [facility] 00:00:00 [facility] HPV 2018-09-11 Completed [facility] 00:00:00 [facility] TD, NOS 2018-09-11 Completed [facility] 00:00:00 [facility] HEPATITIS A 2018-09-11 Completed [facility] 00:00:00 [facility] HPV 2018-09-11 Completed [facility] 00:00:00 [facility] TD, NOS 2018-09-11 Completed [facility] 00:00:00 [facility] HEPATITIS A 2018-09-11 Completed [facility] 00:00:00 [facility] HPV 2018-09-11 Completed [facility] 00:00:00 [facility] TD, NOS 2018-09-11 Completed [facility] 00:00:00 [facility] HEPATITIS A 2018-09-11 Completed [facility] 00:00:00 [facility] HPV 2018-09-11 Completed [facility] 00:00:00 [facility] TD, NOS 2018-09-11 Completed [facility] 00:00:00 [facility] HEPATITIS A 2018-09-11 Completed [facility] 00:00:00 [facility] HPV 2018-09-11 Completed [facility] 00:00:00 [facility] TD, NOS 2018-09-11 Completed [facility] 00:00:00 [facility] HEPATITIS A 2018-09-11 Completed [facility] 00:00:00 [facility] HPV 2018-09-11 Completed [facility] 00:00:00 [facility] TD, NOS 2018-09-11 Completed [facility] 00:00:00 [facility] HEPATITIS A 2018-09-11 Completed [facility] 00:00:00 [facility] HPV 2018-09-11 Completed [facility] 00:00:00 [facility] TD, NOS 2018-09-11 Completed [facility] 00:00:00 [facility] HEPATITIS A 2018-09-11 Completed [facility] 00:00:00 [facility] HPV 2018-09-11 Completed [facility] 00:00:00 [facility] TD, NOS 2018-09-11 Completed [facility] 00:00:00 [facility] HEPATITIS A 2018-09-11 Completed [facility] 00:00:00 [facility] HPV 2018-09-11 Completed [facility] 00:00:00 [facility] TD, NOS 2018-09-11 Completed [facility] 00:00:00 [facility] HEPATITIS A 2018-09-11 Completed [facility] 00:00:00 [facility] HPV 2018-09-11 Completed [facility] 00:00:00 [facility] TD, NOS 2018-09-11 Completed [facility] 00:00:00 [facility] HEPATITIS A 2018-09-11 Completed [facility] 00:00:00 [facility] HPV 2018-09-11 Completed [facility] 00:00:00 [facility] TD, NOS 2018-09-11 Completed [facility] 00:00:00 [facility] HEPATITIS A 2018-09-11 Completed [facility] 00:00:00 [facility] HPV 2018-09-11 Completed [facility] 00:00:00 [facility] TD, NOS 2018-09-11 Completed [facility] 00:00:00 [facility] HEPATITIS A 2018-09-11 Completed [facility] 00:00:00 [facility] HPV 2018-09-11 Completed [facility] 00:00:00 [facility] TD, NOS 2018-09-11 Completed [facility] 00:00:00 [facility] HEPATITIS A 2018-09-11 Completed [facility] 00:00:00 [facility] HPV 2018-09-11 Completed [facility] 00:00:00 [facility] TD, NOS 2018-09-11 Completed [facility] 00:00:00 [facility] HEPATITIS A 2018-09-11 Completed [facility] 00:00:00 [facility] HPV 2018-09-11 Completed [facility] 00:00:00 [facility] TD, NOS 2018-09-11 Completed [facility] 00:00:00 [facility] Influenza Virus 2018-02-22 Completed [facility] Vaccine 00:00:00 [facility] Influenza Virus 2018-02-22 Completed [facility] Vaccine 00:00:00 [facility] Influenza Virus 2018-02-22 Completed [facility] Vaccine 00:00:00 [facility] Influenza Virus 2018-02-22 Completed [facility] of Vaccine 00:00:00 [facility] Influenza Virus 2018-02-22 Completed [facility] Vaccine 00:00:00 [facility] Influenza Virus 2018-02-22 Completed [facility] Vaccine 00:00:00 [facility] Influenza Virus 2018-02-22 Completed [facility] of Vaccine 00:00:00 [facility] Influenza Virus 2018-02-22 Completed [facility] Vaccine 00:00:00 [facility] Influenza Virus 2018-02-22 Completed [facility] of Vaccine 00:00:00 [facility] Influenza Virus 2018-02-22 Completed [facility] of Vaccine 00:00:00 [facility] Influenza Virus 2018-02-22 Completed [facility] of Vaccine 00:00:00 [facility] Influenza Virus 2018-02-22 Completed [facility] of Vaccine 00:00:00 [facility] Influenza Virus 2018-02-22 Completed [facility] of Vaccine 00:00:00 [facility] Influenza Virus 2018-02-22 Completed [facility] of Vaccine 00:00:00 [facility] Influenza Virus 2018-02-22 Completed [facility] of Vaccine 00:00:00 [facility] Influenza Virus 2018-02-22 Completed [facility] of Vaccine 00:00:00 [facility] Influenza Virus 2018-02-22 Completed [facility] of Vaccine 00:00:00 [facility] Influenza Virus 2018-02-22 Completed [facility] of Vaccine 00:00:00 [facility] Influenza Virus 2018-02-22 Completed [facility] of Vaccine 00:00:00 [facility] Influenza Virus 2018-02-22 Completed [facility] of Vaccine 00:00:00 [facility] Influenza Virus 2018-02-22 Completed [facility] of Vaccine 00:00:00 [facility] Influenza Virus 2018-02-22 Completed [facility] of Vaccine 00:00:00 [facility] Influenza Virus 2018-02-22 Completed [facility] of Vaccine 00:00:00 [facility] Influenza Virus 2018-02-22 Completed [facility] of Vaccine 00:00:00 [facility] Influenza Virus 2018-02-22 Completed [facility] of Vaccine 00:00:00 [facility] Influenza Virus 2018-02-22 Completed [facility] of Vaccine 00:00:00 [facility] DTAP 2016-02-03 Completed [facility] 00:00:00 [facility] DTAP 2016-02-03 Completed [facility] 00:00:00 [facility] DTAP 2016-02-03 Completed [facility] 00:00:00 [facility] DTAP 2016-02-03 Completed [facility] 00:00:00 [facility] DTAP 2016-02-03 Completed [facility] 00:00:00 [facility] DTAP 2016-02-03 Completed [facility] 00:00:00 [facility] DTAP 2016-02-03 Completed [facility] 00:00:00 [facility] DTAP 2016-02-03 Completed [facility] 00:00:00 [facility] DTAP 2016-02-03 Completed [facility] 00:00:00 [facility] DTAP 2016-02-03 Completed [facility] 00:00:00 [facility] DTAP 2016-02-03 Completed [facility] 00:00:00 [facility] DTAP 2016-02-03 Completed [facility] 00:00:00 [facility] [facility] 2016-02-03 Completed [facility] 00:00:00 [facility] DTAP 2016-02-03 Completed [facility] 00:00:00 [facility] DTAP 2016-02-03 Completed [facility] 00:00:00 [facility] DTAP 2016-02-03 Completed [facility] 00:00:00 [facility] DTAP 2016-02-03 Completed [facility] 00:00:00 [facility] DTAP 2016-02-03 Completed [facility] 00:00:00 [facility] DTAP 2016-02-03 Completed [facility] 00:00:00 [facility] DTAP 2016-02-03 Completed [facility] 00:00:00 [facility] DTAP 2016-02-03 Completed [facility] 00:00:00 [facility] DTAP 2016-02-03 Completed [facility] 00:00:00 [facility] Influenza Virus 2013-12-26 Completed [facility]it y [facility] Vaccine 00:00:00 [facility] Influenza Virus 2013-12-26 Completed [facility] Vaccine 00:00:00 [facility] Influenza Virus 2013-12-26 Completed [facility] Vaccine 00:00:00 [facility] Influenza Virus 2013-12-26 Completed [facility] Vaccine 00:00:00 [facility] Influenza Virus 2013-12-26 Completed [facility] Vaccine 00:00:00 [facility] Influenza Virus 2013-12-26 Completed [facility] Vaccine 00:00:00 [facility] Influenza Virus 2013-12-26 Completed [facility] Vaccine 00:00:00 [facility] Influenza Virus 2013-12-26 Completed [facility] Vaccine 00:00:00 [facility] Influenza Virus 2013-12-26 Completed [facility] Vaccine 00:00:00 [facility] Influenza Virus 2013-12-26 Completed [facility] Vaccine 00:00:00 [facility] Influenza Virus 2013-12-26 Completed [facility] Vaccine 00:00:00 [facility] Influenza Virus 2013-12-26 Completed [facility] Vaccine 00:00:00 [facility] Influenza Virus 2013-12-26 Completed [facility] Vaccine 00:00:00 [facility] Influenza Virus 2013-12-26 Completed [facility] Vaccine 00:00:00 [facility] Influenza Virus 2013-12-26 Completed [facility] Vaccine 00:00:00 [facility] Influenza Virus 2013-12-26 Completed [facility] Vaccine 00:00:00 [facility] Influenza Virus 2013-12-26 Completed [facility] Vaccine 00:00:00 [facility] Influenza Virus 2013-12-26 Completed [facility] Vaccine 00:00:00 [facility] Influenza Virus 2013-12-26 Completed [facility] Vaccine 00:00:00 [facility] Influenza Virus 2013-12-26 Completed [facility] Vaccine 00:00:00 [facility] Influenza Virus 2013-12-26 Completed [facility] Vaccine 00:00:00 [facility] Influenza Virus 2013-12-26 Completed [facility] Vaccine 00:00:00 [facility] Influenza Virus 2013-12-26 Completed [facility] Vaccine 00:00:00 [facility] Influenza Virus 2013-12-26 Completed [facility] Vaccine 00:00:00 [facility] Influenza Virus 2013-12-26 Completed [facility] Vaccine 00:00:00 [facility] Influenza Virus 2013-12-26 Completed [facility] Vaccine 00:00:00 [facility] HEPATITIS A 2009-10-01 Completed [facility] 00:00:00 [facility] HPV Unspecified 2009-10-01 Completed [facility] 00:00:00 [facility] Meningococcal 2009-10-01 Completed [facility] Polysaccharide 00:00:00 [place] [facility] (groups A, C, Y and Branc h W-135) conjugate vaccine (MCV4P) TD, NOS 2009-10-01 Completed [facility] 00:00:00 [facility] Varicella 2009-10-01 Completed [facility] of (varivax)(chicken 00:00:00 [facility] edical pox) Branch HEPATITIS A 2009-10-01 Completed [facility] 00:00:00 [facility] HEPATITIS A 2009-10-01 Completed [facility] 00:00:00 [facility] HPV Unspecified 2009-10-01 Completed [facility] 00:00:00 [facility] Meningococcal 2009-10-01 Completed [facility] Polysaccharide 00:00:00 [place] [facility] (groups A, C, Y and Branc h W-135) conjugate vaccine (MCV4P) TD, NOS 2009-10-01 Completed [facility] 00:00:00 [facility] Varicella 2009-10-01 Completed [facility] (varivax)(chicken 00:00:00 [facility] edical pox) Branch HPV Unspecified 2009-10-01 Completed [facility] 00:00:00 [facility] HEPATITIS A 2009-10-01 Completed [facility] 00:00:00 [facility] HPV Unspecified 2009-10-01 Completed [facility] 00:00:00 [facility] Meningococcal 2009-10-01 Completed [facility] Polysaccharide 00:00:00 [place] [facility] (groups A, C, Y and Branc h W-135) conjugate vaccine (MCV4P) Meningococcal 2009-10-01 Completed [facility] Polysaccharide 00:00:00 [place] [facility] (groups A, C, Y and Branc h W-135) conjugate vaccine (MCV4P) TD, NOS 2009-10-01 Completed [facility] 00:00:00 [facility] Varicella 2009-10-01 Completed [facility] (varivax)(chicken 00:00:00 [place] [facility] HEPATITIS A 2009-10-01 Completed [facility] 00:00:00 [facility] HPV Unspecified 2009-10-01 Completed [facility] 00:00:00 [facility] Meningococcal 2009-10-01 Completed [facility] Polysaccharide 00:00:00 [place] [facility] (groups A, C, Y and Branc h W-135) conjugate vaccine (MCV4P) TD, NOS 2009-10-01 Completed [facility] 00:00:00 [facility] Varicella 2009-10-01 Completed [facility] (varivax)(chicken 00:00:00 [place] [facility] Td 2009-10-01 Completed [facility] 00:00:00 [facility] Varicella 2009-10-01 Completed [facility] (varivax)(chicken 00:00:00 [place] [facility] pox) [facility] HEPATITIS A 2009-10-01 Completed [facility] 00:00:00 [facility] HPV Unspecified 2009-10-01 Completed [facility] 00:00:00 [facility] Meningococcal 2009-10-01 Completed [facility] Polysaccharide 00:00:00 [place] [facility] (groups A, C, Y and Branc h W-135) conjugate vaccine (MCV4P) Td 2009-10-01 Completed [facility] 00:00:00 [facility] Varicella 2009-10-01 Completed [facility] (varivax)(chicken 00:00:00 [place] [facility] HEPATITIS A 2009-10-01 Completed [facility] 00:00:00 [facility] HPV Unspecified 2009-10-01 Completed [facility] 00:00:00 [facility] Meningococcal 2009-10-01 Completed [facility] Polysaccharide 00:00:00 [place] [facility] (groups A, C, Y and Branc h W-135) conjugate vaccine (MCV4P) Td 2009-10-01 Completed [facility] 00:00:00 [facility] Varicella 2009-10-01 Completed [facility] (varivax)(chicken 00:00:00 [place] [facility] pox) [facility] HEPATITIS A 2009-10-01 Completed [facility] 00:00:00 [facility] HPV Unspecified 2009-10-01 Completed [facility] 00:00:00 [facility] Meningococcal 2009-10-01 Completed [facility] Polysaccharide 00:00:00 [place] [facility] (groups A, C, Y and Branc h W-135) conjugate vaccine (MCV4P) Td 2009-10-01 Completed [facility] 00:00:00 [facility] Varicella 2009-10-01 Completed [facility] (varivax)(chicken 00:00:00 [place] [facility] pox) [facility] HEPATITIS A 2009-10-01 Completed [facility] 00:00:00 [facility] HPV Unspecified 2009-10-01 Completed [facility] 00:00:00 [facility] Meningococcal 2009-10-01 Completed [facility] Polysaccharide 00:00:00 [place] [facility] (groups A, C, Y and Branc h W-135) conjugate vaccine (MCV4P) Td 2009-10-01 Completed [facility] 00:00:00 [facility] Varicella 2009-10-01 Completed [facility] (varivax)(chicken 00:00:00 [place] [facility] pox) [facility] HEPATITIS A 2009-10-01 Completed [facility] 00:00:00 [facility] HPV Unspecified 2009-10-01 Completed [facility] 00:00:00 [facility] Meningococcal 2009-10-01 Completed [facility] Polysaccharide 00:00:00 [place] [facility] (groups A, C, Y and Branc h W-135) conjugate vaccine (MCV4P) Td 2009-10-01 Completed [facility] 00:00:00 [facility] Varicella 2009-10-01 Completed [facility] (varivax)(chicken 00:00:00 [place] [facility] pox) [facility] HEPATITIS A 2009-10-01 Completed [facility] 00:00:00 [facility] HPV Unspecified 2009-10-01 Completed [facility] 00:00:00 [facility] Meningococcal 2009-10-01 Completed [facility] Polysaccharide 00:00:00 [place] [facility] (groups A, C, Y and Branc h W-135) conjugate vaccine (MCV4P) TD, NOS 2009-10-01 Completed [facility] 00:00:00 [facility] Varicella 2009-10-01 Completed [facility] (varivax)(chicken 00:00:00 [place] [facility] pox) [facility] HEPATITIS A 2009-10-01 Completed [facility] 00:00:00 [facility] HPV Unspecified 2009-10-01 Completed [facility] 00:00:00 [facility] Meningococcal 2009-10-01 Completed [facility] Polysaccharide 00:00:00 [place] [facility] (groups A, C, Y and Branc h W-135) conjugate vaccine (MCV4P) TD, NOS 2009-10-01 Completed [facility] 00:00:00 [facility] Varicella 2009-10-01 Completed [facility] (varivax)(chicken 00:00:00 [place] [facility] pox) [facility] HEPATITIS A 2009-10-01 Completed [facility] 00:00:00 [facility] HPV Unspecified 2009-10-01 Completed [facility] 00:00:00 [facility] Meningococcal 2009-10-01 Completed [facility] Polysaccharide 00:00:00 [place] [facility] (groups A, C, Y and Branc h W-135) conjugate vaccine (MCV4P) TD, NOS 2009-10-01 Completed [facility] 00:00:00 [facility] Varicella 2009-10-01 Completed [facility] (varivax)(chicken 00:00:00 [place] [facility] pox) [facility] HEPATITIS A 2009-10-01 Completed [facility] 00:00:00 [facility] HPV Unspecified 2009-10-01 Completed [facility] 00:00:00 [facility] Meningococcal 2009-10-01 Completed [facility] of Polysaccharide 00:00:00 [facility] chas (groups A, C, Y and Branc h W-135) conjugate vaccine (MCV4P) TD, NOS 2009-10-01 Completed [facility] 00:00:00 [facility] Varicella 2009-10-01 Completed [facility] (varivax)(chicken 00:00:00 [place] [facility] pox) [facility] HEPATITIS A 2009-10-01 Completed [facility] 00:00:00 [facility] HPV Unspecified 2009-10-01 Completed [facility] 00:00:00 [facility] Meningococcal 2009-10-01 Completed [facility] Polysaccharide 00:00:00 [facility] chas (groups A, C, Y and Branc h W-135) conjugate vaccine (MCV4P) TD, NOS 2009-10-01 Completed [facility] 00:00:00 [facility] Varicella 2009-10-01 Completed [facility] (varivax)(chicken 00:00:00 [place] [facility] pox) [facility] HEPATITIS A 2009-10-01 Completed [facility] 00:00:00 [facility] HPV Unspecified 2009-10-01 Completed [facility] 00:00:00 [facility] Meningococcal 2009-10-01 Completed [facility] Polysaccharide 00:00:00 [place] [facility] (groups A, C, Y and Branc h W-135) conjugate vaccine (MCV4P) TD, NOS 2009-10-01 Completed [facility] 00:00:00 [facility] Varicella 2009-10-01 Completed [facility] (varivax)(chicken 00:00:00 [place] [facility] pox) [facility] HEPATITIS A 2009-10-01 Completed [facility] 00:00:00 [facility] HPV Unspecified 2009-10-01 Completed [facility] 00:00:00 [facility] Meningococcal 2009-10-01 Completed [facility] Polysaccharide 00:00:00 [place] [facility] (groups A, C, Y and Branc h W-135) conjugate vaccine (MCV4P) TD, NOS 2009-10-01 Completed [facility] 00:00:00 [facility] Varicella 2009-10-01 Completed [facility] (varivax)(chicken 00:00:00 [place] [facility]) [facility] HEPATITIS A 2009-10-01 Completed [facility] 00:00:00 [facility] HPV Unspecified 2009-10-01 Completed [facility] 00:00:00 [facility] Meningococcal 2009-10-01 Completed [facility] of Polysaccharide 00:00:00 [facility] chas (groups A, C, Y and Branc h W-135) conjugate vaccine (MCV4P) TD, NOS 2009-10-01 Completed [facility] 00:00:00 [facility] Varicella 2009-10-01 Completed [facility] (varivax)(chicken 00:00:00 [place] [facility] pox) [facility] HEPATITIS A 2009-10-01 Completed [facility] 00:00:00 [facility] HPV Unspecified 2009-10-01 Completed [facility] 00:00:00 [facility] Meningococcal 2009-10-01 Completed [facility] of Polysaccharide 00:00:00 [facility] chas (groups A, C, Y and Branc h W-135) conjugate vaccine (MCV4P) TD, NOS 2009-10-01 Completed [facility] 00:00:00 [facility] Varicella 2009-10-01 Completed [facility] (varivax)(chicken 00:00:00 [place] [facility] pox) [facility] HEPATITIS A 2009-10-01 Completed [facility] 00:00:00 [facility] HPV Unspecified 2009-10-01 Completed [facility] 00:00:00 [facility] Meningococcal 2009-10-01 Completed [facility] Polysaccharide 00:00:00 [place] [facility] (groups A, C, Y and Branc h W-135) conjugate vaccine (MCV4P) TD, NOS 2009-10-01 Completed [facility] 00:00:00 [facility] Varicella 2009-10-01 Completed [facility] (varivax)(chicken 00:00:00 [place] [facility] HEPATITIS A 2009-10-01 Completed [facility] 00:00:00 [facility] HPV Unspecified 2009-10-01 Completed [facility] 00:00:00 [facility] Meningococcal 2009-10-01 Completed [facility] Polysaccharide 00:00:00 [place] [facility] (groups A, C, Y and Branc h W-135) conjugate vaccine (MCV4P) TD, NOS 2009-10-01 Completed [facility] 00:00:00 [facility] Varicella 2009-10-01 Completed [facility] (varivax)(chicken 00:00:00 [place] [facility] pox) [facility] HEPATITIS A 2009-10-01 Completed [facility] 00:00:00 [facility] HPV Unspecified 2009-10-01 Completed [facility] 00:00:00 [facility] Meningococcal 2009-10-01 Completed [facility] of Polysaccharide 00:00:00 [facility] chas (groups A, C, Y and Branc h W-135) conjugate vaccine (MCV4P) TD, NOS 2009-10-01 Completed [facility] 00:00:00 [facility] Varicella 2009-10-01 Completed [facility] (varivax)(chicken 00:00:00 [place] [facility]ox) [facility] HEPATITIS A 2009-10-01 Completed [facility] 00:00:00 [facility] HPV Unspecified 2009-10-01 Completed [facility] 00:00:00 [facility] Meningococcal 2009-10-01 Completed [facility] of Polysaccharide 00:00:00 [facility] chas (groups A, C, Y and Branc h W-135) conjugate vaccine (MCV4P) TD, NOS 2009-10-01 Completed [facility] 00:00:00 [facility] Varicella 2009-10-01 Completed [facility] (varivax)(chicken 00:00:00 [place] [facility] pox) [facility] HEPATITIS A 2009-10-01 Completed [facility] 00:00:00 [facility] HPV Unspecified 2009-10-01 Completed [facility] 00:00:00 [facility] Meningococcal 2009-10-01 Completed [facility] Polysaccharide 00:00:00 [place] [facility] (groups A, C, Y and Branc h W-135) conjugate vaccine (MCV4P) TD, NOS 2009-10-01 Completed [facility] 00:00:00 [facility] Varicella 2009-10-01 Completed [facility] (varivax)(chicken 00:00:00 [place] [facility] pox) [facility] HEPATITIS A 2009-10-01 Completed [facility] 00:00:00 [facility] HPV Unspecified 2009-10-01 Completed [facility] 00:00:00 [facility] Meningococcal 2009-10-01 Completed [facility] of Polysaccharide 00:00:00 [facility] chas (groups A, C, Y and Branc h W-135) conjugate vaccine (MCV4P) TD, NOS 2009-10-01 Completed [facility] 00:00:00 [facility] Varicella 2009-10-01 Completed [facility] (varivax)(chicken 00:00:00 [place] [facility] pox) [facility] HEPATITIS A 2009-10-01 Completed [facility] 00:00:00 [facility] HPV Unspecified 2009-10-01 Completed [facility] 00:00:00 [facility] Meningococcal 2009-10-01 Completed [facility] of Polysaccharide 00:00:00 [facility] chas (groups A, C, Y and Branc h W-135) conjugate vaccine (MCV4P) TD, NOS 2009-10-01 Completed [facility] 00:00:00 [facility] Varicella 2009-10-01 Completed [facility] (varivax)(chicken 00:00:00 [place] [facility] pox) [facility] DTAP 2001-11-13 Completed [facility] 00:00:00 [facility] MMR 2001-11-13 Completed [facility] 00:00:00 [facility] Polio (IPV/OPV) 2001-11-13 Completed [facility] 00:00:00 [facility] DTAP 2001-11-13 Completed [facility] 00:00:00 [facility] MMR 2001-11-13 Completed [facility] 00:00:00 [facility] Polio (IPV/OPV) 2001-11-13 Completed [facility] 00:00:00 [facility] DTAP 2001-11-13 Completed [facility] 00:00:00 [facility] MMR 2001-11-13 Completed [facility] 00:00:00 [facility] Polio (IPV/OPV) 2001-11-13 Completed [facility] 00:00:00 [facility] MMR 2001-11-13 Completed [facility] 00:00:00 [facility] DTAP 2001-11-13 Completed [facility] 00:00:00 [facility] MMR 2001-11-13 Completed [facility] 00:00:00 [facility] Polio (IPV/OPV) 2001-11-13 Completed [facility] 00:00:00 [facility] Polio (IPV/OPV) 2001-11-13 Completed [facility] 00:00:00 [facility] DTAP 2001-11-13 Completed [facility] 00:00:00 [facility] MMR 2001-11-13 Completed [facility] 00:00:00 [facility] Polio (IPV/OPV) 2001-11-13 Completed [facility] 00:00:00 [facility] DTAP 2001-11-13 Completed [facility] 00:00:00 [facility] MMR 2001-11-13 Completed [facility] 00:00:00 [facility] Polio (IPV/OPV) 2001-11-13 Completed [facility] 00:00:00 [facility] DTAP 2001-11-13 Completed [facility] 00:00:00 [facility] MMR 2001-11-13 Completed [facility] 00:00:00 [facility] Polio (IPV/OPV) 2001-11-13 Completed [facility] 00:00:00 [facility] DTAP 2001-11-13 Completed [facility] 00:00:00 [facility] MMR 2001-11-13 Completed [facility] 00:00:00 [facility] Polio (IPV/OPV) 2001-11-13 Completed [facility] 00:00:00 [facility] DTAP 2001-11-13 Completed [facility] 00:00:00 [facility] MMR 2001-11-13 Completed [facility] 00:00:00 [facility] Polio (IPV/OPV) 2001-11-13 Completed [facility] 00:00:00 [facility] DTAP 2001-11-13 Completed [facility] 00:00:00 [facility] MMR 2001-11-13 Completed [facility] 00:00:00 [facility] Polio (IPV/OPV) 2001-11-13 Completed [facility] 00:00:00 [facility] DTAP 2001-11-13 Completed [facility] 00:00:00 [facility] MMR 2001-11-13 Completed [facility] 00:00:00 [facility] Polio (IPV/OPV) 2001-11-13 Completed [facility] 00:00:00 [facility] DTAP 2001-11-13 Completed [facility] 00:00:00 [facility] MMR 2001-11-13 Completed [facility] 00:00:00 [facility] Polio (IPV/OPV) 2001-11-13 Completed [facility] 00:00:00 [facility] DTAP 2001-11-13 Completed [facility] 00:00:00 [facility] MMR 2001-11-13 Completed [facility] 00:00:00 [facility] Polio (IPV/OPV) 2001-11-13 Completed [facility] 00:00:00 [facility] DTAP 2001-11-13 Completed [facility] 00:00:00 [facility] MMR 2001-11-13 Completed [facility] 00:00:00 [facility] Polio (IPV/OPV) 2001-11-13 Completed [facility] 00:00:00 [facility] DTAP 2001-11-13 Completed [facility] 00:00:00 [facility] MMR 2001-11-13 Completed [facility] 00:00:00 [facility] Polio (IPV/OPV) 2001-11-13 Completed [facility] 00:00:00 [facility] DTAP 2001-11-13 Completed [facility] 00:00:00 [facility] MMR 2001-11-13 Completed [facility] 00:00:00 [facility] Polio (IPV/OPV) 2001-11-13 Completed [facility] 00:00:00 [facility] DTAP 2001-11-13 Completed [facility] 00:00:00 [facility] MMR 2001-11-13 Completed [facility] 00:00:00 [facility] Polio (IPV/OPV) 2001-11-13 Completed [facility] 00:00:00 [facility] DTAP 2001-11-13 Completed [facility] 00:00:00 [facility] MMR 2001-11-13 Completed [facility] 00:00:00 [facility] Polio (IPV/OPV) 2001-11-13 Completed [facility] 00:00:00 [facility] DTAP 2001-11-13 Completed [facility] 00:00:00 [facility] MMR 2001-11-13 Completed [facility] 00:00:00 [facility] Polio (IPV/OPV) 2001-11-13 Completed [facility] 00:00:00 [facility] DTAP 2001-11-13 Completed [facility] 00:00:00 [facility] MMR 2001-11-13 Completed [facility] 00:00:00 [facility] Polio (IPV/OPV) 2001-11-13 Completed [facility] 00:00:00 [facility] DTAP 2001-11-13 Completed [facility] 00:00:00 [facility] MMR 2001-11-13 Completed [facility] 00:00:00 [facility] Polio (IPV/OPV) 2001-11-13 Completed [facility] 00:00:00 [facility] DTAP 2001-11-13 Completed [facility] 00:00:00 [facility] MMR 2001-11-13 Completed [facility] 00:00:00 [facility] Polio (IPV/OPV) 2001-11-13 Completed [facility] 00:00:00 [facility] DTAP 2001-11-13 Completed [facility] 00:00:00 [facility] MMR 2001-11-13 Completed [facility] 00:00:00 [facility] Polio (IPV/OPV) 2001-11-13 Completed [facility] 00:00:00 [facility] DTAP 2001-11-13 Completed [facility] 00:00:00 [facility] MMR 2001-11-13 Completed [facility] 00:00:00 [facility] [facility] (IPV/OPV) 2001-11-13 Completed [facility]00 [facility] DTAP 2001-11-13 Completed [facility] 00:00:00 [facility] MMR 2001-11-13 Completed [facility] 00:00:00 [facility] Polio (IPV/OPV) 2001-11-13 Completed [facility] 00:00:00 [facility] DTAP 2001-11-13 Completed [facility] 00:00:00 [facility] DTAP 2000-03-29 Completed [facility] 00:00:00 [facility] DTAP 2000-03-29 Completed [facility] 00:00:00 [facility] DTAP 2000-03-29 Completed [facility] 00:00:00 [facility] DTAP 2000-03-29 Completed [facility] 00:00:00 [facility] DTAP 2000-03-29 Completed [facility] 00:00:00 [facility] DTAP 2000-03-29 Completed [facility] 00:00:00 [facility] DTAP 2000-03-29 Completed [facility] 00:00:00 [facility] DTAP 2000-03-29 Completed [facility] 00:00:00 [facility] DTAP 2000-03-29 Completed [facility] 00:00:00 [facility] DTAP 2000-03-29 Completed [facility] 00:00:00 [facility] DTAP 2000-03-29 Completed [facility] 00:00:00 [facility] DTAP 2000-03-29 Completed [facility] 00:00:00 [facility] DTAP 2000-03-29 Completed [facility] 00:00:00 [facility] DTAP 2000-03-29 Completed [facility] 00:00:00 [facility] DTAP 2000-03-29 Completed [facility] 00:00:00 [facility] DTAP 2000-03-29 Completed [facility] 00:00:00 [facility] DTAP 2000-03-29 Completed [facility] 00:00:00 [facility] DTAP 2000-03-29 Completed [facility] 00:00:00 [facility] DTAP 2000-03-29 Completed [facility] 00:00:00 [facility] DTAP 2000-03-29 Completed [facility] 00:00:00 [facility] DTAP 2000-03-29 Completed [facility] 00:00:00 [facility] DTAP 2000-03-29 Completed [facility] 00:00:00 [facility] DTAP 2000-03-29 Completed [facility] 00:00:00 [facility] DTAP 2000-03-29 Completed [facility] 00:00:00 [facility] DTAP 2000-03-29 Completed [facility] 00:00:00 [facility] DTAP 2000-03-29 Completed [facility] 00:00:00 [facility] MMR 1999-02-25 Completed [facility] 00:00:00 [facility] Polio (IPV/OPV) 1999-02-25 Completed [facility] 00:00:00 [facility] Varicella 1999-02-25 Completed [facility] of (varivax)(chicken 00:00:00 [facility] edical pox) Branch HIB 3 Dose Schedule 1999-02-25 Completed [facility] 00:00:00 [facility] DTAP 1999-02-25 Completed [facility] 00:00:00 [facility] HIB 3 Dose Schedule 1999-02-25 Completed [facility] 00:00:00 [facility] MMR 1999-02-25 Completed [facility] 00:00:00 [facility] Polio (IPV/OPV) 1999-02-25 Completed [facility] 00:00:00 [facility] Varicella 1999-02-25 Completed [facility] (varivax)(chicken 00:00:00 [place] [facility] DTAP 1999-02-25 Completed [facility] 00:00:00 [facility] HIB 3 Dose Schedule 1999-02-25 Completed [facility] 00:00:00 [facility] MMR 1999-02-25 Completed [facility] 00:00:00 [facility] Polio (IPV/OPV) 1999-02-25 Completed [facility] 00:00:00 [facility] Varicella 1999-02-25 Completed [facility] (varivax)(chicken 00:00:00 [place] [facility] pox[facility] MMR 1999-02-25 Completed [facility] 00:00:00 [facility] DTAP 1999-02-25 Completed [facility] 00:00:00 [facility] HIB 3 Dose Schedule 1999-02-25 Completed [facility] 00:00:00 [facility] MMR 1999-02-25 Completed [facility] 00:00:00 [facility] Polio (IPV/OPV) 1999-02-25 Completed [facility] 00:00:00 [facility] Varicella 1999-02-25 Completed [facility] (varivax)(chicken 00:00:00 [place] [facility] Polio (IPV/OPV) 1999-02-25 Completed [facility] 00:00:00 [facility] Varicella 1999-02-25 Completed [facility] (varivax)(chicken 00:00:00 [place] [facility] DTAP 1999-02-25 Completed [facility] 00:00:00 [facility] HIB 3 Dose Schedule 1999-02-25 Completed [facility] 00:00:00 [facility] MMR 1999-02-25 Completed [facility] 00:00:00 [facility] Polio (IPV/OPV) 1999-02-25 Completed [facility] 00:00:00 [facility] Varicella 1999-02-25 Completed [facility] (varivax)(chicken 00:00:00 [place] [facility] DTAP 1999-02-25 Completed [facility] 00:00:00 [facility] HIB 3 Dose Schedule 1999-02-25 Completed [facility] 00:00:00 [facility] MMR 1999-02-25 Completed [facility] 00:00:00 [facility] Polio (IPV/OPV) 1999-02-25 Completed [facility] 00:00:00 [facility] Varicella 1999-02-25 Completed [facility] (varivax)(chicken 00:00:00 [place] [facility] DTAP 1999-02-25 Completed [facility] 00:00:00 [facility] HIB 3 Dose Schedule 1999-02-25 Completed [facility] 00:00:00 [facility] MMR 1999-02-25 Completed [facility] 00:00:00 [facility] Polio (IPV/OPV) 1999-02-25 Completed [facility] 00:00:00 [facility] Varicella 1999-02-25 Completed [facility] (varivax)(chicken 00:00:00 [place] [facility] DTAP 1999-02-25 Completed [facility] 00:00:00 [facility] HIB 3 Dose Schedule 1999-02-25 Completed [facility] 00:00:00 [facility] MMR 1999-02-25 Completed [facility] 00:00:00 [facility] Polio (IPV/OPV) 1999-02-25 Completed [facility] 00:00:00 [facility] Varicella 1999-02-25 Completed [facility] (varivax)(chicken 00:00:00 [place] [facility] DTAP 1999-02-25 Completed [facility] 00:00:00 [facility] HIB 3 Dose Schedule 1999-02-25 Completed [facility] 00:00:00 [facility] MMR 1999-02-25 Completed [facility] 00:00:00 [facility] Polio (IPV/OPV) 1999-02-25 Completed [facility] 00:00:00 [facility] Varicella 1999-02-25 Completed [facility] (varivax)(chicken 00:00:00 [place] [facility] DTAP 1999-02-25 Completed [facility] 00:00:00 [facility] HIB 3 Dose Schedule 1999-02-25 Completed [facility] 00:00:00 [facility] MMR 1999-02-25 Completed [facility] 00:00:00 [facility] Polio (IPV/OPV) 1999-02-25 Completed [facility] 00:00:00 [facility] Varicella 1999-02-25 Completed [facility] (varivax)(chicken 00:00:00 [place] [facility] DTAP 1999-02-25 Completed [facility] 00:00:00 [facility] HIB 3 Dose Schedule 1999-02-25 Completed [facility] 00:00:00 [facility] MMR 1999-02-25 Completed [facility] 00:00:00 [facility] Polio (IPV/OPV) 1999-02-25 Completed [facility] 00:00:00 [facility] Varicella 1999-02-25 Completed [facility] (varivax)(chicken 00:00:00 [place] [facility] DTAP 1999-02-25 Completed [facility] 00:00:00 [facility] HIB 3 Dose Schedule 1999-02-25 Completed [facility] 00:00:00 [facility] MMR 1999-02-25 Completed [facility] 00:00:00 [facility] Polio (IPV/OPV) 1999-02-25 Completed [facility] 00:00:00 [facility] Varicella 1999-02-25 Completed [facility] (varivax)(chicken 00:00:00 [place] [facility] DTAP 1999-02-25 Completed [facility] 00:00:00 [facility] HIB 3 Dose Schedule 1999-02-25 Completed [facility] 00:00:00 [facility] MMR 1999-02-25 Completed [facility] 00:00:00 [facility] Polio (IPV/OPV) 1999-02-25 Completed [facility] 00:00:00 [facility] Varicella 1999-02-25 Completed [facility] (varivax)(chicken 00:00:00 [place] [facility] DTAP 1999-02-25 Completed [facility] 00:00:00 [facility] HIB 3 Dose Schedule 1999-02-25 Completed [facility] 00:00:00 [facility] MMR 1999-02-25 Completed [facility] 00:00:00 [facility] Polio (IPV/OPV) 1999-02-25 Completed [facility] 00:00:00 [facility] Varicella 1999-02-25 Completed [facility] (varivax)(chicken 00:00:00 [place] [facility] pox[facility] DTAP 1999-02-25 Completed [facility] 00:00:00 [facility] HIB 3 Dose Schedule 1999-02-25 Completed [facility] 00:00:00 [facility] MMR 1999-02-25 Completed [facility] 00:00:00 [facility] Polio (IPV/OPV) 1999-02-25 Completed [facility] 00:00:00 [facility] Varicella 1999-02-25 Completed [facility] (varivax)(chicken 00:00:00 [place] [facility] DTAP 1999-02-25 Completed [facility] 00:00:00 [facility] HIB 3 Dose Schedule 1999-02-25 Completed [facility] 00:00:00 [facility] MMR 1999-02-25 Completed [facility] 00:00:00 [facility] Polio (IPV/OPV) 1999-02-25 Completed [facility] 00:00:00 [facility] Varicella 1999-02-25 Completed [facility] (varivax)(chicken 00:00:00 [place] [facility] DTAP 1999-02-25 Completed [facility] 00:00:00 [facility] HIB 3 Dose Schedule 1999-02-25 Completed [facility] 00:00:00 [facility] MMR 1999-02-25 Completed [facility] 00:00:00 [facility] Polio (IPV/OPV) 1999-02-25 Completed [facility] 00:00:00 [facility] Varicella 1999-02-25 Completed [facility] (varivax)(chicken 00:00:00 [place] [facility] DTAP 1999-02-25 Completed [facility] 00:00:00 [facility] HIB 3 Dose Schedule 1999-02-25 Completed [facility] 00:00:00 [facility] MMR 1999-02-25 Completed [facility] 00:00:00 [facility] Polio (IPV/OPV) 1999-02-25 Completed [facility] 00:00:00 [facility] Varicella 1999-02-25 Completed [facility] (varivax)(chicken 00:00:00 [place] [facility] DTAP 1999-02-25 Completed [facility] 00:00:00 [facility] HIB 3 Dose Schedule 1999-02-25 Completed [facility] 00:00:00 [facility] MMR 1999-02-25 Completed [facility] 00:00:00 [facility] Polio (IPV/OPV) 1999-02-25 Completed [facility] 00:00:00 [facility] Varicella 1999-02-25 Completed [facility] (varivax)(chicken 00:00:00 [place] [facility] p[facility] DTAP 1999-02-25 Completed [facility] 00:00:00 [facility] HIB 3 Dose Schedule 1999-02-25 Completed [facility] 00:00:00 [facility] MMR 1999-02-25 Completed [facility] 00:00:00 [facility] Polio (IPV/OPV) 1999-02-25 Completed [facility] 00:00:00 [facility] Varicella 1999-02-25 Completed [facility] (varivax)(chicken 00:00:00 [place] [facility] DTAP 1999-02-25 Completed [facility] 00:00:00 [facility] HIB 3 Dose Schedule 1999-02-25 Completed [facility] 00:00:00 [facility] MMR 1999-02-25 Completed [facility] 00:00:00 [facility] Polio (IPV/OPV) 1999-02-25 Completed [facility] 00:00:00 [facility] Varicella 1999-02-25 Completed [facility] (varivax)(chicken 00:00:00 [place] [facility] DTAP 1999-02-25 Completed [facility] 00:00:00 [facility] HIB 3 Dose Schedule 1999-02-25 Completed [facility] 00:00:00 [facility] MMR 1999-02-25 Completed [facility] 00:00:00 [facility] Polio (IPV/OPV) 1999-02-25 Completed [facility] 00:00:00 [facility] Varicella 1999-02-25 Completed [facility] (varivax)(chicken 00:00:00 [place] [facility] DTAP 1999-02-25 Completed [facility] 00:00:00 [facility] HIB 3 Dose Schedule 1999-02-25 Completed [facility] 00:00:00 [facility] MMR 1999-02-25 Completed [facility] 00:00:00 [facility] Polio (IPV/OPV) 1999-02-25 Completed [facility] 00:00:00 [facility] Varicella 1999-02-25 Completed [facility] (varivax)(chicken 00:00:00 [place] [facility] DTAP 1999-02-25 Completed [facility] 00:00:00 [facility] HIB 3 Dose Schedule 1999-02-25 Completed [facility] 00:00:00 [facility] MMR 1999-02-25 Completed [facility] 00:00:00 [facility] Polio (IPV/OPV) 1999-02-25 Completed [facility] 00:00:00 [facility] Varicella 1999-02-25 Completed [facility] (varivax)(chicken 00:00:00 [place] [facility] DTAP 1999-02-25 Completed [facility] 00:00:00 [facility] HIB 3 Dose Schedule 1999-02-25 Completed [facility] 00:00:00 [facility] MMR 1999-02-25 Completed [facility] 00:00:00 [facility] Polio (IPV/OPV) 1999-02-25 Completed [facility] 00:00:00 [facility] Varicella 1999-02-25 Completed [facility] (varivax)(chicken 00:00:00 [place] [facility] DTAP 1999-02-25 Completed [facility] 00:00:00 [facility] DTAP 1999-02-25 Completed [facility] 00:00:00 [facility] HIB 3 Dose Schedule 1999-02-25 Completed [facility] 00:00:00 [facility] Hep B, Adol or Pedi 1998-05-27 Completed [facility]ive rsity of Dosage 00:00:00 [facility] Polio (IPV/OPV) 1998-05-27 Completed [facility] 00:00:00 [facility] Hep B, Adol or Pedi 1998-05-27 Completed [facility] rs[facility] of Dosage 00:00:00 [facility] DTAP 1998-05-27 Completed [facility] 00:00:00 [facility] HIB 3 Dose Schedule 1998-05-27 Completed [facility] 00:00:00 [facility] Hep B, Adol or Pedi 1998-05-27 Completed [facility] Dosage 00:00:00 [facility] Polio (IPV/OPV) 1998-05-27 Completed [facility] 00:00:00 [facility] DTAP 1998-05-27 Completed [facility] 00:00:00 [facility] HIB 3 Dose Schedule 1998-05-27 Completed [facility] 00:00:00 [facility] Hep B, Adol or Pedi 1998-05-27 Completed [facility] of Dosage 00:00:00 [facility] Polio (IPV/OPV) 1998-05-27 Completed [facility] 00:00:00 [facility] Polio (IPV/OPV) 1998-05-27 Completed [facility] 00:00:00 [facility] DTAP 1998-05-27 Completed [facility] 00:00:00 [facility] HIB 3 Dose Schedule 1998-05-27 Completed [facility] 00:00:00 [facility] Hep B, Adol or Pedi 1998-05-27 Completed [facility] of Dosage 00:00:00 [facility] Polio (IPV/OPV) 1998-05-27 Completed [facility] 00:00:00 [facility] DTAP 1998-05-27 Completed [facility] 00:00:00 [facility] HIB 3 Dose Schedule 1998-05-27 Completed [facility] 00:00:00 [facility] Hep B, Adol or Pedi 1998-05-27 Completed [facility] rs[facility] of Dosage 00:00:00 [facility] Polio (IPV/OPV) 1998-05-27 Completed [facility] 00:00:00 [facility] DTAP 1998-05-27 Completed [facility] 00:00:00 [facility] HIB 3 Dose Schedule 1998-05-27 Completed [facility] 00:00:00 [facility] Hep B, Adol or Pedi 1998-05-27 Completed [facility] of Dosage 00:00:00 [facility] Polio (IPV/OPV) 1998-05-27 Completed [facility] 00:00:00 [facility] DTAP 1998-05-27 Completed [facility] 00:00:00 [facility] HIB 3 Dose Schedule 1998-05-27 Completed [facility] 00:00:00 [facility] Hep B, Adol or Pedi 1998-05-27 Completed [facility] of Dosage 00:00:00 [facility] Polio (IPV/OPV) 1998-05-27 Completed [facility] 00:00:00 [facility] DTAP 1998-05-27 Completed [facility] 00:00:00 [facility] HIB 3 Dose Schedule 1998-05-27 Completed [facility] 00:00:00 [facility] Hep B, Adol or Pedi 1998-05-27 Completed [facility] of Dosage 00:00:00 [facility] Polio (IPV/OPV) 1998-05-27 Completed [facility] 00:00:00 [facility] DTAP 1998-05-27 Completed [facility] 00:00:00 [facility] HIB 3 Dose Schedule 1998-05-27 Completed [facility] 00:00:00 [facility] Hep B, Adol or Pedi 1998-05-27 Completed [facility] Dosage 00:00:00 [facility] Polio (IPV/OPV) 1998-05-27 Completed [facility] 00:00:00 [facility] DTAP 1998-05-27 Completed [facility] 00:00:00 [facility] HIB 3 Dose Schedule 1998-05-27 Completed [facility] 00:00:00 [facility] Hep B, Adol or Pedi 1998-05-27 Completed [facility] Dosage 00:00:00 [facility] Polio (IPV/OPV) 1998-05-27 Completed [facility] 00:00:00 [facility] DTAP 1998-05-27 Completed [facility] 00:00:00 [facility] HIB 3 Dose Schedule 1998-05-27 Completed [facility] 00:00:00 [facility] Hep B, Adol or Pedi 1998-05-27 Completed [facility] Dosage 00:00:00 [facility] Polio (IPV/OPV) 1998-05-27 Completed [facility] 00:00:00 [facility] DTAP 1998-05-27 Completed [facility] 00:00:00 [facility] HIB 3 Dose Schedule 1998-05-27 Completed [facility] 00:00:00 [facility] Hep B, Adol or Pedi 1998-05-27 Completed [facility] Dosage 00:00:00 [facility] Polio (IPV/OPV) 1998-05-27 Completed [facility] 00:00:00 [facility] DTAP 1998-05-27 Completed [facility] 00:00:00 [facility] HIB 3 Dose Schedule 1998-05-27 Completed [facility] 00:00:00 [facility] Hep B, Adol or Pedi 1998-05-27 Completed [facility] Dosage 00:00:00 [facility] Polio (IPV/OPV) 1998-05-27 Completed [facility] 00:00:00 [facility] DTAP 1998-05-27 Completed [facility] 00:00:00 [facility] HIB 3 Dose Schedule 1998-05-27 Completed [facility] 00:00:00 [facility] Hep B, Adol or Pedi 1998-05-27 Completed [facility] Dosage 00:00:00 [facility] Polio (IPV/OPV) 1998-05-27 Completed [facility] 00:00:00 [facility] DTAP 1998-05-27 Completed [facility] 00:00:00 [facility] HIB 3 Dose Schedule 1998-05-27 Completed [facility] 00:00:00 [facility] Hep B, Adol or Pedi 1998-05-27 Completed [facility] Dosage 00:00:00 [facility] Polio (IPV/OPV) 1998-05-27 Completed [facility] 00:00:00 [facility] DTAP 1998-05-27 Completed [facility] 00:00:00 [facility] HIB 3 Dose Schedule 1998-05-27 Completed [facility] 00:00:00 [facility] Hep B, Adol or Pedi 1998-05-27 Completed [facility] Dosage 00:00:00 [facility] Polio (IPV/OPV) 1998-05-27 Completed [facility] 00:00:00 [facility] DTAP 1998-05-27 Completed [facility] 00:00:00 [facility] HIB 3 Dose Schedule 1998-05-27 Completed [facility] 00:00:00 [facility] Hep B, Adol or Pedi 1998-05-27 Completed [facility] of Dosage 00:00:00 [facility] Polio (IPV/OPV) 1998-05-27 Completed [facility] 00:00:00 [facility] DTAP 1998-05-27 Completed [facility] 00:00:00 [facility] HIB 3 Dose Schedule 1998-05-27 Completed [facility] 00:00:00 [facility] Hep B, Adol or Pedi 1998-05-27 Completed [facility] Dosage 00:00:00 [facility] Polio (IPV/OPV) 1998-05-27 Completed [facility] 00:00:00 [facility] DTAP 1998-05-27 Completed [facility] 00:00:00 [facility] HIB 3 Dose Schedule 1998-05-27 Completed [facility] 00:00:00 [facility] Hep B, Adol or Pedi 1998-05-27 Completed [facility] Dosage 00:00:00 [facility] Polio (IPV/OPV) 1998-05-27 Completed [facility] 00:00:00 [facility] DTAP 1998-05-27 Completed [facility] 00:00:00 [facility] HIB 3 Dose Schedule 1998-05-27 Completed [facility] 00:00:00 [facility] Hep B, Adol or Pedi 1998-05-27 Completed [facility] Dosage 00:00:00 [facility] Polio (IPV/OPV) 1998-05-27 Completed [facility] 00:00:00 [facility] DTAP 1998-05-27 Completed [facility] 00:00:00 [facility] HIB 3 Dose Schedule 1998-05-27 Completed [facility] 00:00:00 [facility] Hep B, Adol or Pedi 1998-05-27 Completed [facility] Dosage 00:00:00 [facility] Polio (IPV/OPV) 1998-05-27 Completed [facility] 00:00:00 [facility] DTAP 1998-05-27 Completed [facility] 00:00:00 [facility] HIB 3 Dose Schedule 1998-05-27 Completed [facility] 00:00:00 [facility] Hep B, Adol or Pedi 1998-05-27 Completed [facility] Dosage 00:00:00 [facility] Polio (IPV/OPV) 1998-05-27 Completed [facility] 00:00:00 [facility] DTAP 1998-05-27 Completed [facility] 00:00:00 [facility] HIB 3 Dose Schedule 1998-05-27 Completed [facility] 00:00:00 [facility] Hep B, Adol or Pedi 1998-05-27 Completed [facility] Dosage 00:00:00 [facility] Polio (IPV/OPV) 1998-05-27 Completed [facility] 00:00:00 [facility] DTAP 1998-05-27 Completed [facility] 00:00:00 [facility] HIB 3 Dose Schedule 1998-05-27 Completed [facility] 00:00:00 [facility] Hep B, Adol or Pedi 1998-05-27 Completed [facility] Dosage 00:00:00 [facility] DTAP 1998-05-27 Completed [facility] 00:00:00 [facility] Polio (IPV/OPV) 1998-05-27 Completed [facility] 00:00:00 [facility] DTAP 1998-05-27 Completed [facility] 00:00:00 [facility] HIB 3 Dose Schedule 1998-05-27 Completed Unive rsity of 00:00:00 [facility] Hep B, Adol or Pedi 1998-05-27 Completed Unive rsity of Dosage 00:00:00 [facility] Polio (IPV/OPV) 1998-05-27 Completed Universit y of 00:00:00 [facility] HIB 3 Dose Schedule 1998-05-27 Completed Unive rsity of 00:00:00 [facility] DTAP 1998-05-27 Completed University of 00:00:00 [facility] HIB 3 Dose Schedule 1998-05-27 Completed Unive rsity of 00:00:00 [facility] Hep B, Adol or Pedi 1997 Completed Unive rsity of Dosage 00:00:00 [facility] HIB 3 Dose Schedule 1997 Completed Unive rsity of 00:00:00 [facility] Polio (IPV/OPV) 1997 Completed Universit y of 00:00:00 [facility] DTAP 1997 Completed University of 00:00:00 [facility] HIB 3 Dose Schedule 1997 Completed Unive rsity of 00:00:00 [facility] Hep B, Adol or Pedi 1997 Completed Unive rsity of Dosage 00:00:00 [facility] Hep B, Adol or Pedi 1997 Completed Unive rsity of Dosage 00:00:00 [facility] Polio (IPV/OPV) 1997 Completed Universit y of 00:00:00 [facility] DTAP 1997 Completed University of 00:00:00 [facility] HIB 3 Dose Schedule 1997 Completed Unive rsity of 00:00:00 [facility] Hep B, Adol or Pedi 1997 Completed Unive rsity of Dosage 00:00:00 [facility] Polio (IPV/OPV) 1997 Completed Universit y of 00:00:00 [facility] DTAP 1997 Completed University of 00:00:00 [facility] HIB 3 Dose Schedule 1997 Completed Unive rsity of 00:00:00 [facility] Polio (IPV/OPV) 1997 Completed Universit y of 00:00:00 [facility] Hep B, Adol or Pedi 1997 Completed Unive rsity of Dosage 00:00:00 [facility] Polio (IPV/OPV) 1997 Completed Universit y of 00:00:00 [facility] DTAP 1997 Completed University of 00:00:00 [facility] HIB 3 Dose Schedule 1997 Completed Unive rsity of 00:00:00 [facility] Hep B, Adol or Pedi 1997 Completed Unive rsity of Dosage 00:00:00 [facility] Polio (IPV/OPV) 1997 Completed Universit y of 00:00:00 [facility] DTAP 1997 Completed University of 00:00:00 [facility] HIB 3 Dose Schedule 1997 Completed Unive rsity of 00:00:00 [facility] Hep B, Adol or Pedi 1997 Completed Unive rsity of Dosage 00:00:00 [facility] Polio (IPV/OPV) 1997 Completed Universit y of 00:00:00 [facility] DTAP 1997 Completed University of 00:00:00 [facility] HIB 3 Dose Schedule 1997 Completed Unive rsity of 00:00:00 [facility] Hep B, Adol or Pedi 1997 Completed Unive rsity of Dosage 00:00:00 [facility] Polio (IPV/OPV) 1997 Completed Universit y of 00:00:00 [facility] DTAP 1997 Completed University of 00:00:00 [facility] HIB 3 Dose Schedule 1997 Completed Unive rsity of 00:00:00 [facility] Hep B, Adol or Pedi 1997 Completed Unive rsity of Dosage 00:00:00 [facility] Polio (IPV/OPV) 1997 Completed Universit y of 00:00:00 [facility] DTAP 1997 Completed University of 00:00:00 [facility] HIB 3 Dose Schedule 1997 Completed Unive rsity of 00:00:00 [facility] Hep B, Adol or Pedi 1997 Completed Unive rsity of Dosage 00:00:00 [facility] Polio (IPV/OPV) 1997 Completed Universit y of 00:00:00 [facility] DTAP 1997 Completed University of 00:00:00 [facility] HIB 3 Dose Schedule 1997 Completed Unive rsity of 00:00:00 [facility] Hep B, Adol or Pedi 1997 Completed Unive rsity of Dosage 00:00:00 [facility] Polio (IPV/OPV) 1997 Completed Universit y of 00:00:00 [facility] DTAP 1997 Completed University of 00:00:00 [facility] HIB 3 Dose Schedule 1997 Completed Unive rsity of 00:00:00 [facility] Hep B, Adol or Pedi 1997 Completed Unive rsity of Dosage 00:00:00 [facility] Polio (IPV/OPV) 1997 Completed Universit y of 00:00:00 [facility] DTAP 1997 Completed University of 00:00:00 [facility] HIB 3 Dose Schedule 1997 Completed Unive rsity of 00:00:00 [facility] Hep B, Adol or Pedi 1997 Completed Unive rsity of Dosage 00:00:00 [facility] Polio (IPV/OPV) 1997 Completed Universit y of 00:00:00 [facility] DTAP 1997 Completed University of 00:00:00 [facility] HIB 3 Dose Schedule 1997 Completed Unive rsity of 00:00:00 [facility] Hep B, Adol or Pedi 1997 Completed Unive rsity of Dosage 00:00:00 [facility] Polio (IPV/OPV) 1997 Completed Universit y of 00:00:00 [facility] DTAP 1997 Completed University of 00:00:00 [facility] HIB 3 Dose Schedule 1997 Completed Unive rsity of 00:00:00 [facility] Hep B, Adol or Pedi 1997 Completed Unive rsity of Dosage 00:00:00 [facility] Polio (IPV/OPV) 1997 Completed Universit y of 00:00:00 [facility] DTAP 1997 Completed University of 00:00:00 [facility] HIB 3 Dose Schedule 1997 Completed Unive rsity of 00:00:00 [facility] Hep B, Adol or Pedi 1997 Completed Unive rsity of Dosage 00:00:00 [facility] Polio (IPV/OPV) 1997 Completed Universit y of 00:00:00 [facility] DTAP 1997 Completed University of 00:00:00 [facility] HIB 3 Dose Schedule 1997 Completed Unive rsity of 00:00:00 [facility] Hep B, Adol or Pedi 1997 Completed Unive rsity of Dosage 00:00:00 [facility] Polio (IPV/OPV) 1997 Completed Universit y of 00:00:00 [facility] DTAP 1997 Completed University of 00:00:00 [facility] HIB 3 Dose Schedule 1997 Completed Unive rsity of 00:00:00 [facility] Hep B, Adol or Pedi 1997 Completed Unive rsity of Dosage 00:00:00 [facility] Polio (IPV/OPV) 1997 Completed Universit y of 00:00:00 [facility] DTAP 1997 Completed University of 00:00:00 [facility] HIB 3 Dose Schedule 1997 Completed Unive rsity of 00:00:00 [facility] Hep B, Adol or Pedi 1997 Completed Unive rsity of Dosage 00:00:00 [facility] Polio (IPV/OPV) 1997 Completed Universit y of 00:00:00 [facility] DTAP 1997 Completed University of 00:00:00 [facility] HIB 3 Dose Schedule 1997 Completed Unive rsity of 00:00:00 [facility] Hep B, Adol or Pedi 1997 Completed Unive rsity of Dosage 00:00:00 [facility] Polio (IPV/OPV) 1997 Completed Universit y of 00:00:00 [facility] DTAP 1997 Completed University of 00:00:00 [facility] HIB 3 Dose Schedule 1997 Completed Unive rsity of 00:00:00 [facility] Hep B, Adol or Pedi 1997 Completed Unive rsity of Dosage 00:00:00 [facility] Polio (IPV/OPV) 1997 Completed Universit y of 00:00:00 [facility] DTAP 1997 Completed University of 00:00:00 [facility] HIB 3 Dose Schedule 1997 Completed Unive rsity of 00:00:00 [facility] Hep B, Adol or Pedi 1997 Completed Unive rsity of Dosage 00:00:00 [facility] Polio (IPV/OPV) 1997 Completed Universit y of 00:00:00 [facility] DTAP 1997 Completed University of 00:00:00 [facility] HIB 3 Dose Schedule 1997 Completed Unive rsity of 00:00:00 [facility] Hep B, Adol or Pedi 1997 Completed Unive rsity of Dosage 00:00:00 [facility] Polio (IPV/OPV) 1997 Completed Universit y of 00:00:00 [facility] DTAP 1997 Completed University of 00:00:00 [facility] HIB 3 Dose Schedule 1997 Completed Unive rsity of 00:00:00 [facility] Hep B, Adol or Pedi 1997 Completed Unive rsity of Dosage 00:00:00 [facility] Polio (IPV/OPV) 1997 Completed Universit y of 00:00:00 [facility] DTAP 1997 Completed University of 00:00:00 [facility] HIB 3 Dose Schedule 1997 Completed Unive rsity of 00:00:00 [facility] Hep B, Adol or Pedi 1997 Completed Unive rsity of Dosage 00:00:00 [facility] Polio (IPV/OPV) 1997 Completed Universit y of 00:00:00 [facility] DTAP 1997 Completed University of 00:00:00 [facility] HIB 3 Dose Schedule 1997 Completed Unive rsity of 00:00:00 [facility] DTAP 1997 Completed University of 00:00:00 [facility] Hep B, Adol or Pedi 1997 Completed Unive rsity of Dosage 00:00:00 [facility] Polio (IPV/OPV) 1997 Completed Universit y of 00:00:00 [facility] DTAP 1997 Completed University of 00:00:00 [facility] HIB 3 Dose Schedule 1997 Completed Unive rsity of 00:00:00 [facility] Hep B, Adol or Pedi 1997 Completed Unive rsity of Dosage 00:00:00 [facility] Hep B, Adol or Pedi 1997 Completed Unive rsity of Dosage 00:00:00 [facility] Hep B, Adol or Pedi 1997 Completed Unive rsity of Dosage 00:00:00 [facility] Hep B, Adol or Pedi 1997 Completed Unive rsity of Dosage 00:00:00 [facility] Hep B, Adol or Pedi 1997 Completed Unive rsity of Dosage 00:00:00 [facility] Hep B, Adol or Pedi 1997 Completed Unive rsity of Dosage 00:00:00 [facility] Hep B, Adol or Pedi 1997 Completed Unive rsity of Dosage 00:00:00 [facility] Hep B, Adol or Pedi 1997 Completed Unive rsity of Dosage 00:00:00 [facility] Hep B, Adol or Pedi 1997 Completed Unive rsity of Dosage 00:00:00 [facility] Hep B, Adol or Pedi 1997 Completed Unive rsity of Dosage 00:00:00 [facility] Hep B, Adol or Pedi 1997 Completed Unive rsity of Dosage 00:00:00 [facility] Hep B, Adol or Pedi 1997 Completed Unive rsity of Dosage 00:00:00 [facility] Hep B, Adol or Pedi 1997 Completed Unive rsity of Dosage 00:00:00 [facility] Hep B, Adol or Pedi 1997 Completed Unive rsity of Dosage 00:00:00 [facility] Hep B, Adol or Pedi 1997 Completed Unive rsity of Dosage 00:00:00 [facility] Hep B, Adol or Pedi 1997 Completed Unive rsity of Dosage 00:00:00 [facility] Hep B, Adol or Pedi 1997 Completed Unive rsity of Dosage 00:00:00 [facility] Hep B, Adol or Pedi 1997 Completed Unive rsity of Dosage 00:00:00 [facility] Hep B, Adol or Pedi 1997 Completed Unive rsity of Dosage 00:00:00 [facility] Hep B, Adol or Pedi 1997 Completed Unive rsity of Dosage 00:00:00 [facility] Hep B, Adol or Pedi 1997 Completed Unive rsity of Dosage 00:00:00 [facility] Hep B, Adol or Pedi 1997 Completed Unive rsity of Dosage 00:00:00 [facility] Hep B, Adol or Pedi 1997 Completed Unive rsity of Dosage 00:00:00 [facility] Hep B, Adol or Pedi 1997 Completed Unive rsity of Dosage 00:00:00 [facility] Hep B, Adol or Pedi 1997 Completed Unive rsity of Dosage 00:00:00 [facility] Hep B, Adol or Pedi 1997 Completed Unive rsity of Dosage 00:00:00 [facility] Vital Signs Vital Name Observation Time Observation Value Comments Source Systolic blood 2022-09-03 19:22:00 126 mm[Hg] Univer sity of pressure [facility] Diastolic blood 2022-09-03 19:22:00 87 mm[Hg] Unive rsity of pressure [facility] Heart rate 2022-09-03 19:22:00 71 /min [facility] Body temperature 2022-09-03 19:22:00 36.72 Anastasia Univ ers[facility] of [facility] Respiratory rate 2022-09-03 19:22:00 18 /min Univ ers[facility] Body height 2022-09-03 19:22:00 152.4 cm [facility] Body weight 2022-09-03 19:22:00 80.74 kg [facility] BMI 2022-09-03 19:22:00 34.76 kg/m2 [facility] Systolic blood 2022-07-15 01:33:00 129 mm[Hg] Univer sity of pressure [facility] Diastolic blood 2022-07-15 01:33:00 88 mm[Hg] Unive rsity of pressure [facility] Heart rate 2022-07-15 01:33:00 84 /min [facility] Body temperature 2022-07-15 01:33:00 37.06 Anastasia [facility] Respiratory rate 2022-07-15 01:33:00 15 /min Univ ers[facility] Body height 2022-07-15 01:33:00 152.4 cm [facility] Body weight 2022-07-15 01:33:00 82.419 kg [facility] BMI 2022-07-15 01:33:00 35.49 kg/m2 [facility] Oxygen saturation in 2022-07-15 01:33:00 97 /min University Arterial blood by [facility] Pulse oximetry Branch Systolic blood 2022-05-20 21:32:00 139 mm[Hg] Univer sity of pressure [facility] Diastolic blood 2022-05-20 21:32:00 88 mm[Hg] Unive rsity of pressure [facility] Heart rate 2022-05-20 21:32:00 86 /min [facility] Body temperature 2022-05-20 21:32:00 37 Anastasia Univ ersity of [facility] Respiratory rate 2022-05-20 21:32:00 16 /min Univ ersity of [facility] Body weight 2022-05-20 21:32:00 80.287 kg [facility] BMI 2022-05-20 21:32:00 34.57 kg/m2 [facility] Oxygen saturation in 2022-05-20 21:32:00 99 /min University of Arterial blood by [place] [facility] Pulse oximetry Branch Systolic blood 2022-02-02 14:19:00 110 mm[Hg] Univer sity of pressure [facility] Diastolic blood 2022-02-02 14:19:00 74 mm[Hg] Unive rsity of pressure [facility] Heart rate 2022-02-02 14:19:00 74 /min [facility] Body temperature 2022-02-02 14:19:00 36.67 Anastasia [facility] Respiratory rate 2022-02-02 14:19:00 18 /min Univ [facility] Body height 2022-02-02 14:19:00 152.4 cm [facility] Body weight 2022-02-02 14:19:00 77.837 kg [facility] BMI 2022-02-02 14:19:00 33.51 kg/m2 [facility] Systolic blood 2022-01-11 16:13:00 122 mm[Hg] Univer sity of pressure [facility] Diastolic blood 2022-01-11 16:13:00 77 mm[Hg] Unive rsity of pressure [facility] Heart rate 2022-01-11 16:13:00 71 /min [facility] Body temperature 2022-01-11 16:13:00 36.56 Anastasia [facility] Body height 2022-01-11 16:13:00 152.4 cm [facility] Body weight 2022-01-11 16:13:00 78.473 kg [facility] BMI 2022-01-11 16:13:00 33.79 kg/m2 [facility] Oxygen saturation in 2022-01-11 16:13:00 99 /min University of Arterial blood by [place] [facility] Pulse oximetry Branch height 2021-11-09 10:40:00 60 [in_i] [facility] weight 2021-11-09 10:40:00 145 [lb_av] [facility] temperature 2021-11-09 10:40:00 98.0 [degF] [facility] bmi 2021-11-09 10:40:00 28.32 kg/m2 [facility] Procedures Procedure Date / Time Performing Clinician Source Performed US OB TRANSVAGINAL 2022-09-04 04:52:48 Adum, Aleida Dempsey [facility] URINE DRUG (IMMUNOASSAY) 2022-09-03 20:44:00 Adum, Aleida Dempsey [facility] n[place] SCREEN POCT TEST 2022-09-03 00:00:00 Adum, Aleida Dempsey [facility] POCT URINALYSIS W/O 2022-09-03 00:00:00 Adum, Aleida Dempsey [facility] SPECIFIC GRAVITY [facility] POCT SARS-COV-2 ANTIGEN 2022-05-20 21:37:00 Jennifer Norris [facility] (BINAX NOW) [facility] PATIENT FINANCIAL 2022-05-20 21:17:43 Doctor Unassigned, No [facility] POLICY Name [facility] POCT TEST 2022-01-11 17:44:00 Eloy Culver [facility] Plan of Care Planned Activity Planned Date Details Comments Source Diagnostic Test 2021-11-20 PPD (purified [place] [facility] Pending 00:00:00 [facility] s derivative), skin test [code = PPD (purified protein derivative), skin test] Encounters Start End Encounter Admission Attending Care Care Encounter Source Date/Time Date/Time Type Type Clinicians Facility Department ID 2021-09-[address] [facility] [id number] Common 13:46:01 Avnee [id number] [facility] 2021-03-11 Outpatient LORRIE [facility] [id number] Common 13:28:04 Avnee [id number] [facility] 2021-03-11 Outpatient Aiken, STLMLC [facility] [id number] Common 13:27:42 Gabnegisella [id number] [facility] 2021-03-11 Outpatient Sudhir, [facility] [id number] Common 12:16:14 Luma [id number] [facility] 2021-03-11 Outpatient Sudhir, [facility] [id number] Common 12:15:00 Luma [id number] [facility] 2021-03-11 Outpatient Sudhir, STLMLC 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 [facility] [id number] [id number] Univers 09:45:00 10:00:00 Visit Adum, Aleida Roselyn [place] [id number] ity [facility] [id number] [id number] Md dical NAL 353 [facility] 2022-09-06 2022-09-06 Outpatient R ADUM, [facility] [id number] Univers 09:45:00 09:45:00 ALEIDATAYE good [facility] 2022-09-03 2022-09-03 Outpatient R ADUM, [facility] [id number] Univers 14:00:00 15:48:53 ALEIDATAYE good [facility] 2022-09-03 2022-09-03 Initial Adum, [facility] 1.2.840.114 [id number] Univers 14:00:00 15:48:53 Aleida Dempsey [place] [id number] ity of [facility] [id number] [id number] Me dical NAL [address] [facility] 2022-07-14 2022-07-14 [facility] [id number] Univers 20:34:38 23:59:00 REENU ity [facility] 2022-07-14 2022-07-14 [facility] 1.2.840.114 [id number] Univers 20:34:38 23:59:00 [facility] [id number] ity of [place] [id number] Marciano as KASIE?BLEA [id number] Me dical KNEY 808 [facility] 2022-07-14 2022-07-14 Urgent Aidan [facility] 1.2.840.11 [id number] Univers 20:40:00 20:41:50 Care Unknown, Attending [facility] [id number] [facility] [id number] Marciano as KASIE?BLEA [id number] Me dical KNEY 370 [facility] 2022-06-28 2022-06-28 Telephone [email or web address] [id number] Univers 00:00:00 00:00:00 [facility] [id number] it y of [place] [id number] Marciano as KASIE?BLEA [id number] Me dical KNEY 044 [facility] 2022-06-25 2022-06-25 Outpatient R PHUC [facility] [id number] Univers 10:45:00 11:18:15 FIDELINA driscolly [facility] 2022-06-25 2022-06-25 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, Chance - Dhaval [facility] 1.2.840.1 [id number] Univers 10:45:00 11:18:15 Visit Unknown, Attending HEALTH [id number] ity of [place] [id number] Marciano as KASIE?BLEA [id number] Me dical KNEY [address] [place] MEDICAL OFFICE [facility] 2022-05-20 2022-05-20 Outpatient R SUDHA [facility] [id number] Univers 16:20:00 17:20:48 ALFREDO florentino [facility] 2022-05-20 2022-05-20 Urgent Sudha [facility] 1.2.840.11 [id number] Univers 16:20:00 17:20:48 Care Unknown, [facility] HEALTH [id number] ity of [place] [id number] Marciano as KASIE?BLEA [id number] [facility] [address] [place] MEDICAL OFFICE [facility] 2022-05-20 2022-05-20 Orders Doctor JOSE 1.2.840.114 [id number] Univers 00:00:00 00:00:00 Only Unassigned, ÓSCAR 350.1.13.10 ity of [place] [facility] 4.2.7.2.686 Marciano as [phone] [address] 2022-05-20 2022-05-20 [facility]ill [email or web address] [id number] Univers 00:00:00 00:00:00 Alfredo HEALTH 350.1.13.10 it y of [place] [id number] Marciano as KASIE?BLEA [id number] [facility] [address] [facility] OFFICE [facility] 2022-05-17 2022-05-17 Patient [email or web address] [id number] [id number] Univers 00:00:00 00:00:00 [facility] [id number] ity of [place] 4.2.7.2.686 Marciano as KASIE?BLEA [id number] [facility] [address] [facility] OFFICE [facility] 2022-04-12 2022-04-12 Outpatient R PALOMO [facility] [id number] Univers 11:00:00 11:00:00 ELOY itpavithra [facility] 2022-04-07 2022-04-07 Patient [email or web address] [id number] [id number] Univers 00:00:00 00:00:00 Secure Ms Eloy HEALTH 350.1.13.10 ity of [place] 4.2.7.2.686 Marciano as KASIE?BLEA [id number] Md dicchinyere [facility] [address] [facility] OFFICE [facility] 2022-02-02 2022-02-02 Outpatient R SUDHA [facility] [id number] Univers 08:00:00 08:56:57 ALFREDO good [facility] 2022-02-02 2022-02-02 Office Sudha [facility] [id number] Univers 08:00:00 08:56:57 Visit Alfredo PALMA 350.1.13.10 i ty [place] [id number] Md layne ESCOTO [address] [facility] 2022-01-11 2022-01-11 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, 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 - [facility] 1.2.840.1 [id number] Univers 11:00:00 11:15:00 Visit Palomo Eloy [facility] 350.1.13.10 ity [facility] [id number] Marciano as KASIE?BLEA [id number] Md layne [address] [facility] OFFICE [facility] 2022-01-11 2022-01-11 Outpatient R PALOMO [facility] [id number] Univers 10:00:00 10:45:38 ELOY pavithra [facility] 2022-01-11 2022-01-11 Office [email or web address] 1.2.840.114 [id number] Univers 10:00:00 10:45:38 Visit Eloy [facility] [id number] it y of [place] [id number] Marciano as KASIE?BLEA [phone] Md dicchinyere BUSBY 044 [facility] OFFICE [facility] 2022-01-06 2022-01-06 Outpatient R RIP [facility] [id number] Univers 14:30:00 14:30:00 ZANDRA pavithra [facility] 2021-12-31 2021-12-31 Outpatient SISSON_C [facility] 2021 [place] 00:00:00 00:00:00 1117 [facility] 2021-12-31 2021-12-31 [facility] [place] [id number] [place] 00:00:00 00:00:00 [facility] MSN, MEMBERSHIP SOLICITOR, Hospital - ty WRECKING CRANE ENGINE OPERATOR-C: [address] [place] [facility] [address], [facility] [address], Jesusita Edwards [place] MSN, WRECKING CRANE ENGINE OPERATOR-C [id number] , Ph. 2021-12-21 2021-12-21 Ambulatory nullFlavo MNA [id number] Memoria 15:30:00 15:30:00 Pre-Reg r Neurology 00 l Sun Perryann 2021-12-21 2021-12-21 Ambulatory nullFlavo MNA [id number] Memoria 15:30:00 15:30:00 Pre-Reg r Neurology 00 l Sun Perryann 2021-12-21 2021-12-21 Outpatient MHIE MHIE [id number] [facility]:00 09:30:00 00 l [place] 2021-12-21 2021-12-21 Outpatient Regi MISCHER MHMISCHER [id number] 09:30:00 09:30:00 Thien 00 Roger 2021-11-20 2021-11-20 [facility] 2021 [place] 00:00:00 00:00:00 1007 Commun i ty Hospita l [facility] 2021-11-20 2021-11-20 [facility] [place] 00:00:00 00:00:00 [facility] MSN, MEMBERSHIP SOLICITOR, Hospital - ty WRECKING CRANE ENGINE OPERATOR-C: [address] [place] [facility] [address], [facility] [address], Jesusita Edwards [place] MSN, WRECKING CRANE ENGINE OPERATOR-C [id number] , Ph. 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, Ang Db Test [facility] [id number] Univers 15:30:00 15:45:00 Visit RuiChely [facility] [id number] ity of [place] [id number] Marciano as KASIE?BLEA [id number] [address] MEDICAL OFFICE BUILDING 2021-02-18 2021-02-18 Outpatient R RUI [facility] [id number] Univers 15:30:00 15:30:00 [facility] 2021-02-11 2021-02-11 [facility] [id number] Univers 06:45:00 23:59:00 [facility] 2021-02-11 2021-02-11 [facility] [place] A [facility] [id number] Univers 06:45:00 23:59:00 Encounter Only, Adc Ed Test [place] 350.1.13. 10 ity of [place] [id number] [place] [phone] [facility] [address] 2021-02-11 2021-02-11 Outpatient R HAILY [facility] [id number] Univers 06:45:00 23:59:00 NAOMI [facility] 2021-02-11 2021-02-11 Orders Doctor GARCIA [id number] Univers 00:00:00 00:00:00 Only Unassigned, ÓSCAR [id number] ity of [place] [facility] [id number] Marciano as [phone] [facility] [address] 2020-12-29 2020-12-29 [facility] [id number] Univers 13:20:00 14:04:58 [facility] 2020-12-29 2020-12-29 Urgent [facility] [id number] Univers 13:18:22 14:04:58 Care [facility] [id number] it y of [place] [id number] Marciano as KASIE?BLEA [phone] Md dical [address] MEDICAL OFFICE BUILDING 2020-12-29 2020-12-29 Orders Doctor JOSE [id number] Univers 00:00:00 00:00:00 Only Unassigned, ÓSCAR [id number] ity of [place] [facility] [id number] Marciano as [phone] [address] 2020-09-28 2020-09-28 [facility] [id number] Univers 13:40:00 13:40:00 [facility] 2020-09-02 2020-09-02 Outpatient STLMLC STLMLC [id number] Common 00:00:00 00:00:00 [facility] 2020-03-25 2020-03-25 Outpatient R ALMASTH-EST [facility] EHA [id number] Univers 14:26:00 14:26:00 MARELY pavithra [facility] 2020-02-12 2020-02-12 Outpatient STLMLC STLMLC [id number] Common 00:00:00 00:00:00 [facility] 2020-02-04 2020-02-04 Outpatient STLMLC STLMLC [id number] Common 00:00:00 00:00:00 [facility] 2020-01-29 2020-01-29 Outpatient STLMLC STLMLC [id number] Common 00:00:00 00:00:00 [facility] Results Test Description Test Time Test Comments Results Result Comments Source POCT URINALYSIS W/O SPECIFIC GRAVITY 2022-09-03 19:36:00 Test Item Value Reference Range Interpretation Comme nts POCT PH U (test code = 3254) n/a 5-8 POCT U LEUK EST (test code = 3263) n/a Negative - Negative POCT U NIT (test code = 3262) n/a Negative - Negative POCT U PROT (test code = 3259) neg Negative - Negative POCT U GLU (test code = 3256) neg Negative - Negative POCT U KETONE (test code = 3258) n/a Negative - Negative POCT U BLD (test code = 3257) n/a Negative - Negative [facility] [id number] 19:36:00 Test Item Value Reference Range Interpretation Comments POCT PREG (test code = 1605) Positive On board controls acceptable with C Yes Line (test code = 3574) POCT PREG LOT # (test code = 3575) POCT PREG TEST DATE (test code = 3576) [facility] SARS-COV-2 ANTIGEN (BINAX NOW)2022-05-20 21:37:00 Test Item Value Reference Range Interpretation Comments POCT SARS-COV-2 ANTIGEN Not Detected Not Detected (test code = 33413-6) On board controls Yes acceptable with C Line (test code = 3574) STEW (test code = STEW) accurate development and interpretation of all internal controls Lab Interpretation Normal (test code = 20067-5) [facility] SARS-COV-2 ANTIGEN (BINAX NOW)2022-05-20 21:37:00 Test Item Value Reference Range Interpretation Comments POCT SARS-COV-2 ANTIGEN Not Detected Not Detected (test code = 26135-7) On board controls Yes acceptable with C Line (test code = 3574) STEW (test code = STEW) accurate development and interpretation of all internal controls Lab Interpretation Normal (test code = 74900-5) [facility] [id number] 17:45:00 Test Item Value Reference Range Interpretation Comments POCT PREG (test code = 1605) Negative On board controls acceptable with C Yes Line (test code = 3574) POCT PREG LOT # (test code = 3575) POCT PREG TEST DATE (test code = 3576) [facility] [id number] 17:45:00 Test Item Value Reference Range Interpretation Comments POCT PREG (test code = 1605) Negative On board controls acceptable with C Yes Line (test code = 3574) POCT PREG LOT # (test code = 3575) POCT PREG TEST DATE (test code = 3576) [id number] 17:45:00 Test Item Value Reference Range Interpretation Comments POCT PREG (test code = 1605) Negative On board controls acceptable with C Yes Line (test code = 3574) POCT PREG LOT # (test code = 3575) POCT PREG TEST DATE (test code = 3576) [facility] Progress Notes Date/Time Note Provider Source 2022-09-03 14:00:00-00:00 Formatting of this note migh t be different from the original. [facility] - [facility] Age: [age] year old GA: 9w2d NOB Sis Walker is a 27 year ol d at 9w2d by LMP presents for Initial OB visit today. Patient reports that she she is sure of her LMP but her Ist positive test was in August. Denies vaginal bleeding, abd ominal pain or cramps, nausea or vomiting. 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 , denies domestic violence/immediate part ner violence. Sonogram confirmed an IUP at 5w6d gestation but no FHR visualized at this early gestational age Assessment/Plan Early stage of (primary encounter diag nosis) Less than 8 weeks gestation of Positive test - Reviewed ultrasound findin gs with couple and explained consistent with early and needs repeat sonogram for confirmation of viability - Early precautions given Plan: ADC OR MARY ONLY - RPR, CBC WITH DIFF, HCV ANTIBODY, GC & CHLAMYDIA AMPLIFIED ASSAY, HEPATITIS B SURFACE ANTIGEN, HIV 1/2 AG-AB WITH REFLEX, WORKUP, BLOOD BANK, RUBELLA SCREEN IGG, VZV ANTIBODY SCREEN, URINE CULTURE, URINE DRUG (IMMUNOASSAY) - COMPREHENSIVE DRUG SCREEN, GLUCOSE 1 HOUR POST PRANDIAL, URINE DRUG (IMMUNOASSAY) - COMPREHENSIVE DRUG SCREEN Migraine with status migrainosus, not intractabl e, unspecified migraine type Hx of migraine. But she has had a migraine a jai g while We reviewed avoidance of triggers and hydration Encounter to determine viability of , single or unspecified fetus Plan: OB Ultrasound Transvaginal Return to clinic in 7-10 days. Reviewed patient instructions and provided print ed copy. Aleida Apodaca MD 09/05/2022 6:26 PM Electronically signed by Aleida Apodaca MD at 0 09/05/2022 6:33 PM CDT Notes Date/Time Note Provider Source 2022-09-06 09:45:00-00:00 Formatting of this note is d ifferent from the original. [facility] Images from the original note were not included. Given 50gm glucola @ 1003. Venipuncture collection perf ormed by clean technique on the left anticubitus. Total of 1 attempts were made. Slight pressure and a bandage/dressing were applied to the site(s). The patient experienced n o complications. The followi ng specimens were processed according to instructions and sent to [facility] laboratories per lab order on 09/06/2022 : LT BLUE SST 4 RED 1 LAV 2 PPT DK GREEN (LiHep) DK GREEN (SodH) RODRIGUEZ DK BLUE (K2) DK BLUE (S) ACD Blood Culture NIPT/NTD Patient has been identified by and name and was provided with cup, antiseptic towelette, and clean catch instructions. 1 urine specimen(s) sent. Unpreserved Urine Culture 1 Aptima tube Other urine Electronically signed by Madelyn Pablo at 11:26 AM CDT
[2022-09-17] MEDS ORDERED: NA CHLORIDE 0.9% 1,000 ML ONE (06:25)
[2022-09-17 06:37] LABS: Specific Gravity 1.022 (1.005-1.030)
[2022-09-17 06:38] LABS: Absolute Lymphocytes (CBC) 2.2 K/uL (0.7-4.9); Hematocrit 40.4 % (36.0-45.0); Lymphocytes % 23.5 % (15.3-44.8); MPV 7.4 fL (7.6-11.3); RBC Red Blood Cell Count 4.35 M/uL (3.86-4.86)
[2022-09-17 06:39] LABS: Specific Gravity 1.022 (1.005-1.030); Urine Bacteria None Seen /HPF (<20); Urine Bilirubin NEGATIVE (Negative); Urine Blood 3+ (OVER) (Negative); Urine Clarity Clear (Clear); Urine Color Light-Yellow (Yellow); Urine Glucose NEGATIVE (Negative); Urine Mucus Slight /HPF (None Seen); Urine Protein TRACE (Negative); Urine RBC <5 /HPF (None Seen); Urine Urobilinogen Normal (Normal)
[2022-09-17 07:09] LABS: Potassium 3.5 mEq/L (3.5-5.1)
--- NOTE | 2022-09-17 07:14 | ER ---
Nurse's Notes [facility] Name: Sis Walker Age: 27 yrs Sex: Female : 1995 Arrival Date: 09/17/2022 Time: 05:40 Bed 14 Private MD: Diagnosis: Threatened ;8 weeks gestation of Presentation: 09/17 05:58 Chief complaint: Patient states: I woke up this morning around 0430 and I was bleeding. kd3 I am passing some quarter sized clots. This is my first and I went to my OBGYN who said i am about 8 weeks . Coronavirus screen: Vaccine status: Patient reports receiving the 2nd dose of the covid vaccine. Ebola Screen: No symptoms or risks identified at this time. Initial Sepsis Screen: Does the patient meet any 2 criteria? No. Patient's initial sepsis screen is negative. Does the patient have a suspected source of infection? No. Patient's initial sepsis screen is negative. Risk Assessment: Do you want to hurt yourself or someone else? Patient reports no desire to harm self or others. Onset of symptoms was September 17, 2022. 05:58 Method Of Arrival: Ambulatory kd3 05:58 Acuity: YAHIR 3 kd3 Triage Assessment: 06:01 General: Appears in no apparent distress. Behavior is crying. Pain: Denies pain. : kd3 Reports vaginal bleeding that is bright red, with clots. 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 - Social history:: Smoking status: Patient denies any tobacco usage or history of. - Family history:: not pertinent. Screenin:36 [facility] ED Fall Risk Assessment (Adult) History of falling in the last 3 months, jw7 including since admission No falls in past 3 months (0 pts) Score/Fall Risk Level 0 - 2 = Low Risk. Abuse screen: Denies threats or abuse. Denies injuries from another. Nutritional screening: No deficits noted. Tuberculosis screening: No symptoms or risk factors identified. Assessment: 06:32 General: Appears in no apparent distress. Behavior is calm, cooperative, quiet. Neuro: jw7 Level of Consciousness is awake, alert, obeys commands, Oriented to person, place, time, situation. Cardiovascular: Capillary refill < 3 seconds Patient's skin is warm and dry. Respiratory: Airway is patent Trachea midline Respiratory effort is even, unlabored, Respiratory pattern is regular, symmetrical. 07:00 Reassessment: Patient appears in no apparent distress at this time. Patient and/or kc6 family updated on plan of care and expected duration. Pain level reassessed. Patient is alert, oriented x 3, equal unlabored respirations, skin warm/dry/pink. 07:14 Reassessment: d/c pending IV fluid completion. kc6 Vital Signs: 05:50 BP 133 / 83; Pulse 83; Resp 19; Pulse Ox 100% on R/A; jw7 05:58 BP 133 / 83; Pulse 88; Resp 16; Temp 98.5(O); Pulse Ox 100% on R/A; Weight 79.38 kg; kd3 Height 4 ft. 11 in. ; 06:39 BP 108 / 78; Pulse 77; Resp 18 S; Pulse Ox 100% on R/A; jw7 07:26 BP 121 / 76; Pulse 77; Resp 18 S; Pulse Ox 99% on R/A; kc6 05:58 Body Mass Index 35.35 (79.38 kg, 149.86 cm) kd3 ED Course: 05:42 Patient arrived in ED. am2 05:42 Cody Arias MD is Attending Physician. duy 05:57 Grace Nelson, RN is Primary Nurse. kd3 06:01 Triage completed. kd3 06:01 Arm band placed on right wrist. kd3 06:15 Rosalva Sloan, RN is Primary Nurse. jw7 06:24 US Transvaginal Ob In Process Unspecified. EDMS 06:25 Inserted saline lock: 20 gauge in right antecubital area, using aseptic technique. jw7 Blood collected. 06:25 Initial lab(s) drawn, by me, sent to lab. Urine collected: clean catch specimen, clear. jw7 06:30 Urinalysis w/ reflexes Sent. jw7 06:30 Quantitative Hcg Sent. jw7 06:30 Test, Urine Sent. jw7 06:30 CBC with Diff Sent. jw7 06:30 Basic Metabolic Panel Sent. jw7 06:30 Abo/rh Typing Sent. jw7 06:36 Patient has correct armband on for positive identification. Placed in gown. Bed in low jw7 position. Call light in reach. 07:00 Report received from Jose Hess RN. kc6 08:07 No provider procedures requiring assistance completed. IV discontinued, intact, kc6 bleeding controlled, No redness/swelling at site. Pressure dressing applied. 08:08 Provided Education on: PELVIC REST. kc6 Administered Medications: 06:30 Drug: NS 0.9% IV 1000 ml Route: IV; Rate: 1 bolus; Site: right antecubital; jw7 08:07 Follow up: Response: No adverse reaction; IV Status: Completed infusion; IV Intake: kc6 1000ml Medication: 06:36 VIS not applicable for this client. jw7 Intake: 08:07 IV: 1000ml; Total: 1000ml. kc6 Outcome: 07:14 Discharge ordered by . duy 08:07 Discharged to home ambulatory, with significant other. kc6 08:07 Condition: improved 08:07 Discharge instructions given to patient, Instructed on discharge instructions, follow up and referral plans. Demonstrated understanding of instructions, follow-up care. 08:08 Patient left the ED. kc6 Signatures: Dispatcher [employer] EDMS Cody Arias MD MD cha Moreno, Amanda am2 Grace Nelson, RN RN kd3 Rosalva Sloan RN RN jw7 Renee Sheriff RN RN kc6 Corrections: (The following items were deleted from the chart) 06:34 06:32 General: Appears in no apparent distress. Behavior is calm, cooperative, quiet, jw7 jw7 07:26 07:12 Reassessment: Patient appears in no apparent distress at this time. Patient kc6 and/or family updated on plan of care and expected duration. Pain level reassessed. Patient is alert, oriented x 3, equal unlabored respirations, skin warm/dry/pink. kc6
--- NOTE | 2022-09-17 07:14 | EDPHYS ---
Physician Documentation [facility] Name: Sis Walker Age: 27 yrs Sex: Female : 1995 Arrival Date: 09/17/2022 Time: 05:40 Bed 14 Private MD: ED Physician Cody Arias HPI: 09/17 06:29 This 27 yrs old Female presents to ER via Ambulatory with complaints of duy Vaginal Bleeding, + Preg <12wks. 06:29 The patient presents to the emergency department with vaginal bleeding, that is light, dyu that is moderate. The estimated gestational age is 8 weeks. course: care:. Previous pregnancies: the patient has never been . The patient has not experienced similar symptoms in the past. [place] COUNSEL: 06:01 LMP 06/30/2022 kd3 06:29 1, Full Term 0, Premature 0, 0, Living 0 duy Historical: - Allergies: 06:01 No Known Allergies; kd3 - Immunization history:: Adult Immunizations up to date. - Social history:: Smoking status: Patient denies any tobacco usage or history of. - Family history:: not pertinent. ROS: 06:29 Constitutional: Negative for fever, chills, and weight loss, Eyes: Negative for injury, duy pain, redness, and discharge, ENT: Negative for injury, pain, and discharge, Neck: Negative for injury, pain, and swelling, Cardiovascular: Negative for chest pain, palpitations, and edema, Respiratory: Negative for shortness of breath, cough, wheezing, and pleuritic chest pain, Abdomen/GI: Negative for abdominal pain, nausea, vomiting, diarrhea, and constipation, Back: Negative for injury and pain, MS/Extremity: Negative for injury and deformity, Skin: Negative for injury, rash, and discoloration, Neuro: Negative for headache, weakness, numbness, tingling, and seizure, Psych: Negative for depression, anxiety, suicide ideation, homicidal ideation, and hallucinations, Allergy/Immunology: Negative for hives, rash, and allergies, Endocrine: Negative for neck swelling, polydipsia, polyuria, polyphagia, and marked weight changes, Hematologic/Lymphatic: Negative for swollen nodes, abnormal bleeding, and unusual bruising. 06:29 : Positive for pelvic pain, vaginal bleeding. Exam: 06:29 Constitutional: This is a well developed, well nourished patient who is awake, alert, duy and in no acute distress. Head/Face: Normocephalic, atraumatic. Eyes: Pupils equal round and reactive to light, extra-ocular motions intact. Lids and lashes normal. Conjunctiva and sclera are non-icteric and not injected. Cornea within normal limits. Periorbital areas with no swelling, redness, or edema. ENT: Nares patent. No nasal discharge, no septal abnormalities noted. Tympanic membranes are normal and external auditory canals are clear. Oropharynx with no redness, swelling, or masses, exudates, or evidence of obstruction, uvula midline. Mucous membranes moist. Neck: Trachea midline, no thyromegaly or masses palpated, and no cervical lymphadenopathy. Supple, full range of motion without nuchal rigidity, or vertebral point tenderness. No Meningismus. Chest/axilla: Normal chest wall appearance and motion. Nontender with no deformity. No lesions are appreciated. Cardiovascular: Regular rate and rhythm with a normal S1 and S2. No gallops, murmurs, or rubs. Normal PMI, no JVD. No pulse deficits. Respiratory: Lungs have equal breath sounds bilaterally, clear to auscultation and percussion. No rales, rhonchi or wheezes noted. No increased work of breathing, no retractions or nasal flaring. Abdomen/GI: Soft, non-tender, with normal bowel sounds. No distension or tympany. No guarding or rebound. No evidence of tenderness throughout. Back: No spinal tenderness. No costovertebral tenderness. Full range of motion. Skin: Warm, dry with normal turgor. Normal color with no rashes, no lesions, and no evidence of cellulitis. MS/ Extremity: Pulses equal, no cyanosis. Neurovascular intact. Full, normal range of motion. Neuro: Awake and alert, GCS 15, oriented to person, place, time, and situation. Cranial nerves II-XII grossly intact. Motor strength 5/5 in all extremities. Sensory grossly intact. Cerebellar exam normal. Normal gait. Psych: Awake, alert, with orientation to person, place and time. Behavior, mood, and affect are within normal limits. Vital Signs: 05:50 BP 133 / 83; Pulse 83; Resp 19; Pulse Ox 100% on R/A; jw7 05:58 BP 133 / 83; Pulse 88; Resp 16; Temp 98.5(O); Pulse Ox 100% on R/A; Weight 79.38 kg; kd3 Height 4 ft. 11 in. ; 06:39 BP 108 / 78; Pulse 77; Resp 18 S; Pulse Ox 100% on R/A; jw7 07:26 BP 121 / 76; Pulse 77; Resp 18 S; Pulse Ox 99% on R/A; kc6 05:58 Body Mass Index 35.35 (79.38 kg, 149.86 cm) kd3 MDM: 05:43 Patient medically screened. [facility] 06:30 Differential diagnosis: threatened Ab, inevitable Ab. Data reviewed: vital signs, [facility] nurses notes, lab test result(s), radiologic studies, ultrasound. Consideration of Admission/Observation Escalation of care including admission/observation considered. I considered the following discharge prescriptions or medication management in the emergency department Medications were administered in the Emergency Department. See MAR. Test considered but Not performed: X-ray: no x rays. Historians other than the Patient: none. Care significantly affected by the following chronic conditions: none . Counseling: I had a detailed discussion with the patient and/or guardian regarding: the historical points, exam findings, and any diagnostic results supporting the discharge/admit diagnosis, lab results, radiology results, the need for outpatient follow up, for definitive care, an OB/Gyne specialist. 09/17 05:43 Order name: Abo/rh Typing; Complete Time: 07:13 [facility] 09/17 05:43 Order name: Basic Metabolic Panel; Complete Time: 07:13 [facility] 09/17 05:43 Order name: CBC with Diff; Complete Time: 07:03 [facility] 09/17 05:43 Order name: Test, Urine; Complete Time: 07:03 [facility] 09/17 05:43 Order name: Quantitative Hcg; Complete Time: 07:13 [facility] 09/17 05:43 Order name: Urinalysis w/ reflexes; Complete Time: 07:03 [facility] 09/17 05:43 Order name: US Transvaginal Ob [facility] 09/17 05:43 Order name: IV Saline Lock; Complete Time: 06:30 [facility] 09/17 05:43 Order name: Labs collected and sent; Complete Time: 06:30 [facility] 09/17 05:43 Order name: NPO; Complete Time: 06:36 duy Administered Medications: 06:30 Drug: NS 0.9% IV 1000 ml Route: IV; Rate: 1 bolus; Site: right antecubital; jw7 08:07 Follow up: Response: No adverse reaction; IV Status: Completed infusion; IV Intake: kc6 1000ml Disposition Summary: 09/17/22 07:14 Discharge Ordered Location: Home duy Problem: new dyu Symptoms: have improved duy Condition: Stable duy Diagnosis - Threatened duy - 8 weeks gestation of duy Followup: duy - With: Private Physician - When: 2 - 3 days - Reason: Recheck today's complaints, Continuance of care, Re-evaluation by your physician Discharge Instructions: - Discharge Summary Sheet duy - Care duy - Threatened Miscarriage duy - Vaginal Bleeding During , First Trimester duy - First Trimester of , Ucjb-qs-Ixrx duy - First Trimester of duy - Threatened Miscarriage, Brik-rs-Cime duy - Vaginal Bleeding During , First Trimester, Zahf-vc-Wtoy duy Forms: - Medication Reconciliation Form duy - Thank You Letter duy - Antibiotic Education duy - Prescription Opioid Use duy - Patient Portal Instructions duy - Work release form kc6 Signatures: Dispatcher [employer] Cody Will MD MD cha Doucette, Kyli, RN RN kd3 Rosalva Sloan RN RN luh7 Renee Sheriff RN kc6
--- NOTE | 2022-09-17 07:57 | RAD REPORT ---
EXAM DESCRIPTION: US - Transvaginal OB - 09/17/2022 6:22 am CLINICAL HISTORY: ABD CRAMPING, COMPARISON: No comparisons FINDINGS: A single gestational sac is seen within the uterus. The shape of the sac is within normal limits for gestational age. Within the sac is a single pole with crown-rump length of 16 mm, co rrelating to estimated gestational age of 8 weeks 0 days. Estimated date of delivery is 04/29/2023. Heart rate is 158 BPM. The placenta is not yet developed due to early gestational age. The maternal adnexa and right ovary are within normal limits. Normal Doppler blood flow was demonstra jose to the right ovary. Left ovary obscured by bowel gas. IMPRESSION: Single live early intrauterine gestation with estimated gestational age of 8 weeks 0 day s, EMI 04/29/2023. Left ovary obscured by bowel gas.
[2022-09-17 08:14] VITALS: TEMP 98.5
[2022-09-17 08:17] VITALS: BP 121/76; O2SAT 99
== END 2022-09-17 08:08 | disposition home or self-care (01) ==
LOC: ER 05:40
DX: O20.0 Threatened abortion (principal); Z3A.08 8 weeks gestation of pregnancy
CPT/HCPCS: 96361; 85025; 81001; 80048; 36415; 86900; 81025; 86901; 84702; 76817; 96360; 99284; J7030